=== PATIENT | male | born 1985 | race Caucasian/White ===

== ENCOUNTER 2016-09-26 09:59 | Emergency (ER) | payer BC ==
[~2016-09-26] VITALS: Ht 193 cm; Wt 96.9 kg
[~2016-09-26 09:59] MED LIST: LRT5 PO
[2016-09-26 10:14] VITALS: TEMP 36.7; Ht 193 cm; Wt 96.9 kg
--- NOTE | 2016-09-26 10:32 | EMERGENCY ROOM VISIT NOTE ---
History Report prepared by Myriam: Jose C Eagle Under the Supervision of: Dr. Ranjit Bruner M.D. First contact with patient: 10:21 Chief Complaint: ANKLE PAIN Stated Complaint: R ANKLE PAIN History of Present Illness The patient is a 31 year old male who presents to the Emergency Room with complaints of worsening right ankle swelling. The patient's right ankle has been swollen for six months now. The swelling increased today compared to yesterday, which brought the patient to the ED. The patient intermittently has pain radiating from the ankle up the right robbins. He has been diagnosed with arthritis in the past. 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 He denies any weakness or numbness of the right lower extremity. The patient broke the right foot as a child. He has no history of joint problems. He denies fevers, chills, chest pain, back pain, shortness of breath, or rashes , and otherwise feels okay. The patient denies any significant health problems. The patient has had tick exposure in the past. Source of History: patient, spouse/significant other Onset: six months ago Position: ankle (right) Quality: other (swelling) Timing: worsening Associated Symptoms: No fevers, No chills, No chest pain, No SOB, No back pain, No weakness, No numbness, No rash Review of Systems See HPI for pertinent positives & negatives. A total of 10 systems reviewed and were otherwise negative. Past Medical & Surgical Medical Problems: (1) No known health problems Old medical records were reviewed. Nurse's notes were reviewed and I agree with. Denies history of gout or diabetes or Lyme disease or other chronic illnesses Family History No pertinent family history Social History Smoking Status: Never Smoker Housing Status: lives with family Occupation Status: employed Current/Historical Medications No Active Prescriptions or Reported Meds Allergies Coded Allergies: No Known Allergies (Unverified Allergy, Mild, 05/24/07) Physical Exam Vital Signs Date Time Temp Pulse Resp B/P (MAP) Pulse Ox O2 Delivery O2 Flow Rate FiO2 09/26/16 14:12 78 18 143/73 99 09/26/16 10:14 36.7 83 18 134/88 97 Room Air Physical Exam General: Non ill-appearing young male in no acute distress, breathing comfortably on room air. Normal speech HEENT: Normal cephalic atraumatic. Pupils are equal round and reactive to light. Extraocular movements are intact. Oropharynx is pink with moist mucous membranes. No swelling of the mouth lips or tongue. Neck: Supple with a midline trachea. No meningeal signs or stiffness, no JVD or bruits. No Stridor. Chest: Clear to auscultation bilaterally. No wheezes or rhonchi. No increased work of breathing. Heart: regular rate and rhythm. Abdomen: Soft nontender, nondistended without rebound guarding or rigidity. Extremities: Mild swelling of the right lateral ankle, no redness or warmth, bounding distal pulses, normal motor sensation and capillary refill. Spine/Back. Non tender to palpation. No CVA tenderness Skin: Good turgor without rashes. Neurologic exam: Cranial nerves two through 12 are intact. Motor and sensation are intact and symmetrical throughout. Medical Decision & Procedures ER Provider Diagnostic Interpretation: X-ray results as stated below per interpretation by me and the radiologist: Radiology results as stated below per my review and radiologist interpretation: X-ray Right Foot: No fracture or dislocation. RIGHT LOWER EXTREMITY VENOUS DOPPLER CLINICAL HISTORY: Right ankle pain. COMPARISON STUDY: No previous studies for comparison. TECHNIQUE: Sonography of the deep venous system of the right lower extremity was performed. Compression and augmentation were evaluated. FINDINGS: The right common femoral, superficial femoral and popliteal veins were compressible. Augmentation was normal. Flow was shown within the deep calf vessels. IMPRESSION: No evidence of deep venous thrombus within the right lower extremity. Electronically signed by: Hema Reyes M.D. 09/26/2016 1:36 PM Dictated Date/Time: 09/26/2016 1:36 PM Laboratory Results 09/26/16 10:45 Red Blood Count 4.94, Mean Corpuscular Volume 90.9, Mean Corpuscular Hemoglobin 31.2, Mean Corpuscular Hemoglobin Concent 34.3, Mean Platelet Volume 10.2, Neutrophils (%) (Auto) 72.8, Lymphocytes (%) (Auto) 14.2, Monocytes (%) (Auto) 12.4, Eosinophils (%) (Auto) 0.3, Basophils (%) (Auto) 0.1, Neutrophils # (Auto ) 7.18, Lymphocytes # (Auto) 1.40, Monocytes # (Auto) 1.22, Eosinophils # (Auto ) 0.03, Basophils # (Auto) 0.01 09/26/16 10:45 Test 09/26/16 10:45 White Blood Count 9.86 K/uL (4.8-10.8) Red Blood Count 4.94 M/uL (4.7-6.1) Hemoglobin 15.4 g/dL (14.0-18.0) Hematocrit 44.9 % (42-52) Mean Corpuscular Volume 90.9 fL (80-100) Mean Corpuscular Hemoglobin 31.2 pg (25-34) Mean Corpuscular Hemoglobin Concent 34.3 g/dl (32-36) Platelet Count 346 K/uL (130-400) Mean Platelet Volume 10.2 fL (7.4-10.4) Neutrophils (%) (Auto) 72.8 % Lymphocytes (%) (Auto) 14.2 % Monocytes (%) (Auto) 12.4 % Eosinophils (%) (Auto) 0.3 % Basophils (%) (Auto) 0.1 % Neutrophils # (Auto) 7.18 K/uL (1.4-6.5) Lymphocytes # (Auto) 1.40 K/uL (1.2-3.4) Monocytes # (Auto) 1.22 K/uL (0.11-0.59) Eosinophils # (Auto) 0.03 K/uL (0-0.5) Basophils # (Auto) 0.01 K/uL (0-0.2) RDW Standard Deviation 42.6 fL (36.4-46.3) RDW Coefficient of Variation 12.7 % (11.5-14.5) Immature Granulocyte % (Auto) 0.2 % Immature Granulocyte # (Auto) 0.02 K/uL (0.00-0.02) Erythrocyte Sedimentation Rate 3 mm/hr (0-14) Anion Gap 8.0 mmol/L (3-11) Est Creatinine Clear Calc Drug Dose 131.3 ml/min Estimated GFR () 115.7 Estimated GFR (Non- 99.8 BUN/Creatinine Ratio 19.8 (10-20) Uric Acid 5.4 mg/dl (2.6-7.2) Calcium Level 9.0 mg/dl (8.5-10.1) C-Reactive Protein < 0.29 mg/dl (0-0.29) Lyme Disease IgG Antibody NEG (NEG) Lyme Disease IgM Antibody NEG (NEG) Laboratory studies as stated above per my review. ED Course 1025: Past medical records reviewed. The patient was evaluated in room B7, and a complete history and physical examination were performed. 1140: The patient is resting comfortably waiting to go for ultrasound. 1320: The patient is going for the ultrasound. He continues to appear comfortable. 1510: Reassessed the patient. Discussed the findings with him. He understandings and agrees with the discharge instructions. The patient is ready for discharge. Medical Decision Differential diagnosis includes DVT, gout, infection, Lyme disease, trauma, fracture. This patient comes in as described above. He was placed in room B7. He is here for treatment and evaluation of right ankle swelling and pain has been going on for about 6 months. he is on his feet a lot. He's had known injury recently. He had an x-ray yesterday which showed no fracture. There was concern for increased venous prominence and he sent him over here for ultrasound. His foot is pink and well-perfused appearing there is no evidence of arterial or neurovascular compromise. He has normal Achilles function. The joint is not red or warm or swollen. He has no other joint pains or systemic complaints. IV access established blood tests were ordered as well as an ultrasound. His inflammatory markers are not elevated. he has no elevation of the white count or sedimentation rate or CRP. His Lyme titer was negative. Ultrasound shows no evidence of DVT. He should continue use his brace and crutches and keep his appointment with orthopedics and follow-up and use anti- inflammatories. Return if: increasing pain, redness or warmth, fever or chills , any new problems or concerns. Medication Reconciliation: I attest that I have personally reviewed the patient' s current medication list. Blood pressure Screening: Patient was found to have normal blood pressure on screening and does not require follow-up. Impression Primary Impression: Right ankle pain Additional Impression: Right ankle swelling Scribe Attestation The scribe's documentation has been prepared under my direction and personally reviewed by me in its entirety. I confirm that the note above accurately reflects all work, treatment, procedures, and medical decision making performed by me. Departure Information Dispostion Home / Self-Care Prescriptions No Active Prescriptions or Reported Meds Referrals Peter Yoder III, M.D. (PCP) Forms HOME CARE DOCUMENTATION FORM, IMPORTANT VISIT INFORMATION Patient Instructions My [facility] [place] [employer] Additional Instructions Rest. Drink plenty of fluids. Continue to use crutches and air splint as directed previously May use ibuprofen 400 mg every 4 to 6 hours, take with food Return if: Increasing pain, redness or warmth, fever or chills, numbness weakness, any new problems concerns. Follow-up with your doctor or orthopedist this week for recheck. Problem Qualifiers Primary Impression: Right ankle pain Chronicity: unspecified Qualified Codes: M25.571 - Pain in right ankle and joints of right foot
[2016-09-26 11:03] LABS: BASO % 0.1 %; BASO ABS # 0.01 K/uL (0-0.2); COMPLETE YES; EOS % 0.3 %; HEMATOCRIT 44.9 % (42-52); IG% 0.2 %; LYMPH % 14.2 %; MEAN CELL VOLUME 90.9 fL (80-100); MEAN CORPUSCULAR HEMOGLOBIN 31.2 pg (25-34); MEAN CORPUSCULAR HGB CONC 34.3 g/dl (32-36); MEAN PLATELET VOLUME 10.2 fL (7.4-10.4); MONO % 12.4 %; NEUT % 72.8 %; PLATELET COUNT 346 K/uL (130-400); RED BLOOD COUNT 4.94 M/uL (4.7-6.1); WHITE BLOOD COUNT 9.86 K/uL (4.8-10.8)
[2016-09-26 11:31] LABS: BLOOD UREA NITROGEN 20 mg/dl (7-18); BUN/CREATININE RATIO 19.8 (10-20); C-REACTIVE PROTEIN < 0.29 mg/dl (0-0.29); CARBON DIOXIDE 26 mmol/L (21-32); CHLORIDE 107 mmol/L (98-107); GLUCOSE 98 mg/dl (70-99); POTASSIUM 3.8 mmol/L (3.5-5.1); SODIUM 141 mmol/L (136-145); URIC ACID 5.4 mg/dl (2.6-7.2)
[2016-09-26 11:47] LABS: LYME DISEASE AB IGG NEG (NEG); LYME DISEASE AB IGM NEG (NEG)
--- NOTE | 2016-09-26 13:37 | DIAGNOSTIC IMAGING REPORT ---
RIGHT LOWER EXTREMITY VENOUS DOPPLER CLINICAL HISTORY: Right ankle pain. COMPARISON STUDY: No previous studies for comparison. TECHNIQUE: Sonography of the deep venous system of the right lower extremity was performed. Compression and augmentation were evaluated. FINDINGS: The right common femoral, superficial femoral and popliteal veins were compressible. Augmentation was normal. Flow was shown within the deep calf vessels. IMPRESSION: No evidence of deep venous thrombus within the right lower extremity. Electronically signed by: Hema Reyes M.D. 09/26/2016 1:36 PM Dictated Date/Time: 09/26/2016 1:36 PM
[2016-09-26 14:12] VITALS: BP 143/73; PULSE 78; O2SAT 99
== END 2016-09-26 14:17 | disposition home or self-care (01) ==
LOC: C.EDB 10:03
DX: M25.571 Pain in right ankle and joints of right foot (principal); M79.89 Other specified soft tissue disorders

== ENCOUNTER → 2016-12-22 | Outpatient (CLI) | payer BC ==
[2016-12-22 16:28] LABS: DAYS OF ABSTINENCE 3.5; METHOD OF COLLECTION MASTURBATION; SEMEN COLOR GRAY OR GRAY-WHITE (GRY/GRYWHTE); SEMEN TIME OF COLLECTION 1450; SEMEN VOLUME 3.5 ML (>1.5); TYPE OF SPECIMEN CONTAINER STERILE
[2016-12-22 16:31] LABS: SEMEN LIQUEFACTION COMPLETE
[2016-12-26 14:31] LABS: SPERM VIABILITY STAIN NOT INDICATED % (>58%)
== END | disposition home or self-care (01) ==
LOC: C.LAB 15:49
PROVIDERS: ATTEND Obstetrics & Gynecology
DX: Z31.41 Encounter for fertility testing (principal)

== ENCOUNTER 2021-07-02 15:31 | Inpatient (IN) ==
[2021-07-02] MEDS ORDERED: SODIUM CHLORIDE 0.9% 1000ML 2,000 ML IV ONE (15:57)
[2021-07-02 16:38] LABS: Influenza A virus by PCR Negative (Negative); Influenza B virus by PCR Negative (Negative)
[2021-07-02] MEDS ORDERED: cefTRIAXone SODIUM 1,000 MG/50 ML BAG IV STA (16:41)
--- NOTE | 2021-07-02 16:41 | Emergency Department Note ---
History of Present Illness General Chief complaint: Fever Stated complaint: FEVER 103, CHILLS, WAS HERE THIS AM Time Seen by Provider: 07/02/21 15:51 History of Present Illness Provider complaint: Fever chills right testicular and right inguinal pain Onset (ago): hour(s) 4 Location: genitals and right Radiation: non-radiation Severity: severe Pain Consistency: + constant Maximum Pain Intensity: 9 Current Pain Intensity: 9 Quality: + stabbing, + aching, + sharp and + dull Relieved By: + none Exacerbated By: + none Associated symptoms: + fever/chills; no cough, no headaches, no nausea/vomiting or no shortness of breath 35-year-old male presents emergency department for fever chills right testicular right inguinal pain. Patient states he was in the emergency department earlier today and discharge. Patient reports that when he got home he was feeling chills and he took his preacher and had a fever 103.5. Patient states he took the doxycycline he was prescribed during his previous ER visit and then called the urologist who referred him to the emergency department. Patient is still reporting right inguinal and right testicular pain. He also reports dysuria since being discharged. Home Medications Medication Instructions Recorded Confirmed Type elderberry fruit 460 mg-elderberry 1 cap PO DAILY #30 cap 05/15/19 07/02/21 Rx flower 115 mg capsule ldiqasjs-ovakjgeo-ycstf acid 400 1 tab PO DAILY #30 tab 05/15/19 07/02/21 Rx mcg-vit K 20 mcg-lycop 300 mcg tablet (One-A-Day Men's Multivitamin) doxycycline hyclate 100 mg tablet 100 mg PO BID 10 Days #20 tab 07/02/21 07/02/21 Rx ketorolac 10 mg tablet 10 mg PO BID PRN 5 Days #10 tab 07/02/21 07/02/21 Rx tamsulosin 0.4 mg capsule 0.4 mg PO DAILY #14 cap 07/02/21 07/02/21 Rx Allergies Allergy/AdvReac Type Severity Reaction Status Date / Time No Known Allergies Allergy Mild Unverified 07/02/21 16:10 Past Med/Surg History Medical History Migraine Surgical History History of ankle surgery reconstruction of right ankle 2017 Lower extremity injury titanium clayton placed on left femur Family History Sister FH: kidney cancer as a child Grandmother (Paternal) Diabetes Grandfather (Paternal) Heart disease Social History Smoking Status: Never smoker Hx Alcohol Use: Yes Alcohol type: beer Alcohol Intake Frequency Comment: 3-5 weekly Hx Substance Use: No Preferred Language: Paraguayan Communication Ability: Effective Visual Impairment: No Limitations Hearing Ability: Hard of Hearing marital status: Current Living Situation: Spouse current occupational status: employed current occupation: welder production line gas Feels Safe at Home: Yes Childhood Exposure to Second-Hand Smoke: No Dental Care, Regularly: No Physical Activity Frequency: Does not Exercise Seatbelt Use: always Review of Systems A total of 10 systems reviewed and were otherwise negative Physical Exam Vital Signs Vital Signs - 24 hr 07/02/21 15:32 07/02/21 15:57 07/02/21 17:20 Temperature 37.5 C Temperature Source Oral Pulse Rate 131 H 89 124 H Pulse Rhythm Regular Respiratory Rate 20 22 22 Blood Pressure 146/71 H 136/76 Blood Pressure Mean 96 96 Blood Pressure Position Sitting Pulse Oximetry 96 98 98 Oxygen Delivery Method Room Air Room Air Room Air Sepsis Recent Fever Within 48 Hours Yes Sepsis New/Unexplained Change in Mental Status No Sepsis Action Taken by Nursing No Action Required Physical Exam GENERAL: He is oriented to person, place, and time. He appears well-developed and well-nourished. He does not appear distressed. HENT: Exam performed. - Head: Normocephalic and atraumatic. - Right Ear: External ear normal. No mastoid tenderness. - Left Ear: External ear normal. No mastoid tenderness. - Mouth/Throat: The oropharynx is clear and moist. No trismus in the jaw. No dental abscesses or uvula swelling. No oropharyngeal exudate or tonsillar abscesses. EYES: Conjunctivae and EOM are normal. Pupils are equal, round, and reactive to light. Right eye exhibits no discharge. Left eye exhibits no discharge. No scle ral icterus. NECK: Normal range of motion. Neck supple. No JVD present. No spinous process tenderness present. No carotid bruit present. No rigidity. No tracheal deviation and normal range of motion present. No Brudzinski's sign and no Kernig's sign noted. CV: Tachycardic rate, regular rhythm, normal heart sounds and intact distal pulses. There is no peripheral edema. Palpable radial pulses bue. PULM/CHEST: Effort normal and breath sounds normal. No respiratory distress. No stridor. He has no wheezes. He has no rales. - Chest Wall: He exhibits no tenderness. ABD: The abdomen is soft. Bowel sounds are normal. He has no distension. No mass is present. There is tenderness to palpation of the right lower quadrant. : Cremasteric reflex present bilaterally. Pain on palpation of the right testicle. No genital lesions. No urethral discharge. No inguinal hernias bilaterally. MUSC/SKEL: Normal range of motion. There is no peripheral edema, tenderness or deformity. LYMPH: No cervical adenopathy. NEURO: He is alert and oriented to person, place, and time. He has normal strength. No cranial nerve deficit or sensory deficit. Coordination and gait normal. GCS eye subscore is 4. GCS verbal subscore is 5. GCS motor subscore is 6. Cerebellar tests wnl. SKIN: Skin is warm and dry. He is not diaphoretic. PSYCH: He has a normal mood and affect. Behavior is normal. Judgment and thought content normal. Course Course 1551: The patient was evaluated in room B2. A complete history and physical exam was performed Cardiac monitoring: An order was placed for continuous cardiac monitoring. The monitor shows a rate of 130 with sinus tachycardia rhythm EMR reviewed. Patient was discharged from the ER today at 11:48 AM, roughly 4 hours ago. At that time the patient was discharged with prescription doxycycline ketorolac Flomax. During his previous ER workup he had a leukocytosis of 20 and a negative urinalysis. Testicular ultrasound showed epididymal orchitis. 1740: Patient's white blood cell count is elevated at 23. Acid within normal limits. CT of the abdomen pelvis is within normal limits. Patient will be admitted to the [facility] hospitalist team Dr. Morse notified for orchitis. Rocephin also given to the patient while in the emergency department. Administered Medications Discontinued Medications Sodium Chloride (Nss 1000ml) 2,000 mls @ 999 mls/hr IV .Q2H1M ONE Stop: 07/02/21 17:57 Last Admin: 07/02/21 16:30 Dose: 999 mls/hr Documented by: [id number] Ceftriaxone Sodium (Rocephin) 1,000 mg in 50 mls @ 100 mls/hr IV NOW STA Stop: 07/02/21 17:10 Last Infusion: 07/02/21 17:58 Dose: 0 mls/hr Documented by: [id number] Admin: 07/02/21 17:14 Dose: 100 mls/hr Documented by: [id number] Ioversol (Optiray 320 100ml) 93 ml IV ONCE ONE Stop: 07/02/21 16:45 Last Admin: 07/02/21 16:47 Dose: 93 ml Documented by: [id number] Ketorolac Tromethamine (Ketorolac Tromethamine 15 Mg/Ml Vial) 15 mg IV NOW STA Stop: 07/02/21 17:44 Last Admin: 07/02/21 17:48 Dose: 15 mg Documented by: [id number] Medical Decision Making Laboratory Data Result diagrams: 07/02/21 16:22 07/02/21 16:22 Lab Results 07/02/21 07/02/21 07/02/21 Range/Units 16:13 16:13 16:22 WBC 23.32 H (4.8-10.8) K/uL RBC 4.69 L (4.7-6.1) M/uL Hgb 14.5 (14.0-18.0) g/dL Hct 43.4 (42-52) % MCV 92.5 (80-100) fL MCH 30.9 (25-34) pg MCHC 33.4 (32-36) g/dL RDW Std Deviation 44.2 (36.4-46.3) fL RDW Coeff of Kenna 13.1 (11.5-14.5) % Plt Count 374 (130-400) K/uL MPV 10.0 (7.4-10.4) fL Immature Gran % (Auto) 0.3 % Neut % (Auto) 89.6 % Lymph % (Auto) 3.3 % [place] % (Auto) 6.7 % Eos % (Auto) 0.0 % Baso % (Auto) 0.1 % Neut # (Auto) 20.88 H (1.4-6.5) K/uL Lymph # (Auto) 0.78 L (1.2-3.4) K/uL [place] # (Auto) 1.56 H (0.11-0.59) K/uL Eos # (Auto) 0.00 (0-0.5) K/uL Baso # (Auto) 0.02 (0-0.2) K/uL Immature Gran # (Auto) 0.08 H (0.00-0.02) K/uL Sodium (136-145) mmol/L Potassium (3.5-5.1) mmol/L Chloride (98-107) mmol/L Carbon Dioxide (21-32) mmol/L Anion Gap (3-11) BUN (6-23) mg/dl Creatinine (0.6-1.4) mg/dl Est Cr Clr Drug Dosing ml/min Est GFR ( Amer) ml/min Est GFR (Non-Af Amer) ml/min BUN/Creatinine Ratio (10-20) Glucose (70-99(Fasting)) mg/dl Lactate (0.4-2.0) mmol/L Calcium (8.5-10.1) mg/dl Influ A Molecular Assay Negative (Negative) Influ B Molecular Assay Negative (Negative) SARS-CoV-2, RNA, NAAT NEGATIVE (NEGATIVE) 07/02/21 07/02/21 Range/Units 16:22 16:22 WBC (4.8-10.8) K/uL RBC (4.7-6.1) M/uL Hgb (14.0-18.0) g/dL Hct (42-52) % MCV (80-100) fL MCH (25-34) pg MCHC (32-36) g/dL RDW Std Deviation (36.4-46.3) fL RDW Coeff of Kenna (11.5-14.5) % Plt Count (130-400) K/uL MPV (7.4-10.4) fL Immature Gran % (Auto) % Neut % (Auto) % Lymph % (Auto) % [place] % (Auto) % Eos % (Auto) % Baso % (Auto) % Neut # (Auto) (1.4-6.5) K/uL Lymph # (Auto) (1.2-3.4) K/uL [place] # (Auto) (0.11-0.59) K/uL Eos # (Auto) (0-0.5) K/uL Baso # (Auto) (0-0.2) K/uL Immature Gran # (Auto) (0.00-0.02) K/uL Sodium 137 (136-145) mmol/L Potassium 4.0 (3.5-5.1) mmol/L Chloride 105 (98-107) mmol/L Carbon Dioxide 27 (21-32) mmol/L Anion Gap 5 (3-11) BUN 19 (6-23) mg/dl Creatinine 1.02 (0.6-1.4) mg/dl Est Cr Clr Drug Dosing 124.1 ml/min Est GFR ( Amer) 109.9 ml/min Est GFR (Non-Af Amer) 94.8 ml/min BUN/Creatinine Ratio 18.6 (10-20) Glucose 101 H (70-99(Fasting)) mg/dl Lactate 0.8 (0.4-2.0) mmol/L Calcium 9.3 (8.5-10.1) mg/dl Influ A Molecular Assay (Negative) Influ B Molecular Assay (Negative) SARS-CoV-2, RNA, NAAT (NEGATIVE) Imaging Data Radiologist's Impression: Abdomen/Pelvis CT 07/02/21 15:57 CT OF THE ABDOMEN AND PELVIS WITH CONTRAST CLINICAL HISTORY: R flank pain and RLQ pain and dysuria COMPARISON STUDY: None. TECHNIQUE: Following IV administration of 93 mL of Optiray, axial images of the abdomen and pelvis were obtained from the lung bases to the proximal femurs. Images were reviewed in the axial, sagittal, and coronal planes. IV contrast was administered without complication. Automated exposure control was utilized for the study. A dose lowering technique was utilized adhering to the principles of ALARA. CT DOSE: 500.36 mGy.cm FINDINGS: Visualized portions of the lower lungs are suboptimally assessed due to respiratory motion artifact. There is suggestion of tiny nodules throughout the lower lungs, likely centrilobular in location. Linear opacities reflect atelectasis. No pneumatosis, free air or portal venous gas is present. Liver, s pleen, adrenal glands, kidneys and pancreas are normal. There is no hydronephrosis. No biliary or pancreatic ductal dilatation is present. There is no evidence for acute appendicitis. No evidence for a bowel obstruction. Caliber and wall thickness of small and large bowel are normal. There is no lym phadenopathy. Major vasculature is patent. No acute fracture or suspicious lesion within the visualized skeletal structures. Surgical clips within the scrotum are noted. Left femoral internal fixation is partially imaged. IMPRESSION: 1. No acute process within the abdomen or pelvis. 2. Tiny nodules throughout the lower lungs, suboptimally assessed on this exam. These may be centrilobular location and raise the possibility of bronchiolitis or less likely hypersensitivity pneumonitis. ACT 112: Negative or not required by law. Electronically signed by: Hema Reyes M.D. 07/02/2021 5:03 PM [facility] Narrative 1551: The patient was evaluated in room B2. A complete history and physical exam was performed Cardiac monitoring: An order was placed for continuous cardiac monitoring. The monitor shows a rate of 130 with sinus tachycardia rhythm EMR reviewed. Patient was discharged from the ER today at 11:48 AM, roughly 4 hours ago. At that time the patient was discharged with prescription doxycycline ketorolac Flomax. During his previous ER workup he had a leukocytosis of 20 and a negative urinalysis. Testicular ultrasound showed epididymal orchitis. 1740: Patient's white blood cell count is elevated at 23. Acid within normal limits. CT of the abdomen pelvis is within normal limits. Patient will be admitted to the [facility] hospitalist team Dr. Morse notified for orchitis. Rocephin also given to the patient while in the emergency department. Impression & Plan Orchitis and epididymitis Discharge Plan Visit Data Chief Complaint: Fever Stated Complaint: FEVER 103, CHILLS, WAS HERE THIS AM ED Provider: Dandy Huynh Discharge Problem: Orchitis and epididymitis Patient Disposition: Admitted As Inpatient Forms Stand Alone Forms: My [facility] Prescriptions Prescriptions: No Action doxycycline hyclate 100 mg tablet 100 mg PO BID 10 Days Qty: 20 RF: 0 ketorolac 10 mg tablet 10 mg PO BID PRN (Reason: pain) 5 Days Qty: 10 RF: 0 tamsulosin 0.4 mg capsule 0.4 mg PO DAILY Qty: 14 RF: 0 One-A-Day Men's Multivitamin 400-20-300 mcg tablet 1 tab PO DAILY Qty: 30 RF: 0 elderberry fruit and flower 460-115 mg capsule 1 cap PO DAILY Qty: 30 RF: 1 Referrals Referrals: PCP,NO [Primary Care Provider] -
[2021-07-02 16:42] LABS: Hematocrit (blood only) 43.4 % (42-52); Hemoglobin 14.5 g/dL (14.0-18.0); Mean Corpuscular Hemoglobin 30.9 pg (25-34); Mean Corpuscular Hgb Conc 33.4 g/dL (32-36); Mean Corpuscular Volume 92.5 fL (80-100); Platelet Count 374 K/uL (130-400); RDW Coefficient of Variation 13.1 % (11.5-14.5); RDW Standard Deviation 44.2 fL (36.4-46.3); Red Blood Count 4.69 M/uL (4.7-6.1); White Blood Count 23.32 K/uL (4.8-10.8)
[2021-07-02] MEDS ORDERED: OPTIRAY 320 100ml IV ONE (16:44)
[2021-07-02 17:00] LABS: Basophils # (auto) 0.02 K/uL (0-0.2); Basophils % (auto) 0.1 %; Immature Granulocytes # (auto) 0.08 K/uL (0.00-0.02); Immature Granulocytes % (auto) 0.3 %; Lymphocytes # (auto) 0.78 K/uL (1.2-3.4); Lymphocytes % (auto) 3.3 %; Monocytes # (auto) 1.56 K/uL (0.11-0.59); Monocytes % (auto) 6.7 %; Neutrophils # (auto) 20.88 K/uL (1.4-6.5); Neutrophils % (auto) 89.6 %
[2021-07-02 17:03] LABS: BUN Creatinine Ratio 18.6 (10-20); Calcium 9.3 mg/dl (8.5-10.1); Creatinine Clr Calc Pharmacy 124.1 ml/min; Est GFR (African American) 109.9 ml/min; Est GFR (Non-African American) 94.8 ml/min
--- NOTE | 2021-07-02 17:06 | CT Scan Report ---
CT OF THE ABDOMEN AND PELVIS WITH CONTRAST CLINICAL HISTORY: R flank pain and RLQ pain and dysuria COMPARISON STUDY: None. TECHNIQUE: Following IV administration of 93 mL of Optiray, axial images of the abdomen and pelvis we re obtained from the lung bases to the proximal femurs. Images were reviewed in the axial, sagittal, and coronal planes. IV contrast was administered without complication. Automated exposure control wa s utilized for the study. A dose lowering technique was utilized adhering to the principles of ALARA . CT DOSE: 500.36 mGy.cm FINDINGS: Visualized portions of the lower lungs are suboptimally assessed due to respiratory motion artifact. There is suggestion of tiny nodules throughout the lower lungs, likely centrilobular in loc ation. Linear opacities reflect atelectasis. No pneumatosis, free air or portal venous gas is present . Liver, spleen, adrenal glands, kidneys and pancreas are normal. There is no hydronephrosis. No bili lori or pancreatic ductal dilatation is present. There is no evidence for acute appendicitis. No evide nce for a bowel obstruction. Caliber and wall thickness of small and large bowel are normal. There is no lymphadenopathy. Major vasculature is patent. No acute fracture or suspicious lesion within the v isualized skeletal structures. Surgical clips within the scrotum are noted. Left femoral internal fix ation is partially imaged. IMPRESSION: 1. No acute process within the abdomen or pelvis. 2. Tiny nodules throughout the lower lungs, suboptimally assessed on this exam. These may be centrilo bular location and raise the possibility of bronchiolitis or less likely hypersensitivity pneumonitis . ACT 112: Negative or not required by law. Electronically signed by: Hema Reyes M.D. 07/02/2021 5:03 PM
[2021-07-02] MEDS ORDERED: KETOROLAC TROMETHAMINE 15 MG/ML VIAL IV STA (17:43)
[2021-07-02] MEDS ORDERED: SODIUM CHLORIDE 0.9% 1000ML 1,000 ML IV SCH (17:45)
[2021-07-02] MEDS ORDERED: ONDANSETRON INJ 2 MG/ML 2 ML VIAL IV PRN (18:43)
[2021-07-02] MEDS ORDERED: LACTATED RINGER'S 1,000 ML IV SCH (18:45)
[2021-07-02] MEDS ORDERED: levoFLOXacin/D5W 500 MG/100 ML BAG IV STA (18:55)
[2021-07-02 19:40] LABS: Appearance Urine Clear (Clear); Bilirubin Urine Negative (Negative); Blood Urine Negative (Negative); Color Urine Yellow; Glucose Urine UA Negative (Negative); Ketones Urine 2+ (Negative); Leukocyte Esterase Urine Negative (Negative); Nitrite Urine Negative (Negative); Protein Urine Negative (Negative); Specific Gravity Urine > 1.045 (1.000-1.030); Urobilinogen Urine Negative (Negative); pH Urine 6.5 (4.5-7.5)
--- NOTE | 2021-07-02 19:45 | History & Physical Report ---
Date of Service July 02, 2021 Assessment & Plan (1) Sepsis: Plan: Sepsis without shock- Pulmonary vs. testicle or both - Will cover for epididymitis with Rocephin and Levaquin until STI ruled in/out- - Urine Analysis with culture - CXR- reticulonodular interstitial thickening within the lungs- lungs clear, no cough, no dyspnea and/or hypoxia- Rocephin and Levaquin still with good pulm coverage - - Blood cultures- although drawn after administration of oral doxy this morning and Rocephin dosing in EMD - MRSA swab- post vasectomy in 05/20 - ESR/CRP/PCT - GC and Chlamydia urine - Prostate not enlarged on CT scan also no pain with defecation - Lactate 0.8 - no further evidence of organ dysfunction - Crystalloid 1L now and follow with LR 125ml/hour- not hypotensive (2) Orchitis and epididymitis: Plan: As above- Urology consulted - Updated Dr. 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 exposure - no cough, no sputum, no hypoxia and/or dysnpea - No comparison - Treat as above - CT high res either as inpatient or outpatient History of Present Illness Primary Care Provider: NO PCP 35 YOM with past medical history of: Migraine, s/p vasectomy in May 20. Comes to the [facility] today for complaints of right testicular pain that started at 0400 this morning with radiation to his lower abdomen. 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 As the day went on the pain got worse, he called urology office and was instructed to come to the EMD. He had a urine sample that was negative alta 06/27/21. He was evaluated in the EMD this morning with testicular ultrasound and following discussion with urology- he was discharged with oral Doxycycline. The patient states he went home took Doxy and then woke up with increased pain, fever with rigors, checked his temperature and was noted to be 103. He returned back to the EMD and was noted to have HR 130s- he was given a dose of Rocephin and had a CT scan of his abdomen and pelvis done. WBC are 23 with neutrophil predominance, lactate 0.8. Last void was at 1300 today. He has no other complaints other than testicular pain, no other feelings of being ill, denies dyspnea, cough, sinus congestion, or pain with defecation. Will admit to PCU for sepsis, continue to search for other causes, CXR and blood cultures. Ultrasound of testicle was negative for abscess- awaiting urine culture, will send G&C urine. Cover patient with antibiotics to include Rocephin and Levaquin. Bolus with 1 liter of crystalloid and continue with LR, he is not hyp otensive or other evidence of organ dysfunction. Will consult urology. COVID: NEGATIVE Allergies Allergy/AdvReac Type Severity Reaction Status Date / Time No Known Allergies Allergy Mild Unverified 07/10/21 12:07 Home Medications Medication Instructions Recorded Confirmed Type elderberry fruit 460 mg-elderberry 1 cap PO DAILY #30 cap 05/15/19 07/10/21 Rx flower 115 mg capsule jnubgfpo-jsrvaiir-gstcf acid 400 1 tab PO DAILY #30 tab 05/15/19 07/10/21 Rx mcg-vit K 20 mcg-lycop 300 mcg tablet (One-A-Day Men's Multivitamin) acetaminophen 325 mg tablet 650 mg PO Q6H PRN #30 tab 07/04/21 07/10/21 Rx ibuprofen 200 mg tablet 600 mg PO Q6H PRN #60 tab 07/04/21 07/10/21 Rx Past Med/Surg History Medical History (Updated 07/10/21 @ 12:23 by HOLDEN Rock III) Abnormal CT scan, chest Industrial fumes exposure Migraine Pulmonary nodules Sepsis Surgical History H/O vasectomy 05/09/21 History of ankle surgery reconstruction of right ankle 2017 Lower extremity injury titanium clayton placed on left femur Family History Sister FH: kidney cancer Grandmother (Paternal) Diabetes Grandfather (Paternal) Heart disease Denies family history of Ovarian cancer Prostate cancer Myocardial infarction Breast cancer Colorectal cancer Social History Smoking Status: Never smoker 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); Hx Alcohol Use: No Hx Substance Use: No Preferred Language: French Communication Ability: Effective Visual Impairment: No Limitations Hearing Ability: Hard of Hearing Service Plumber Required: No Beliefs That Will Affect Care: None marital status: Current Living Situation: Spouse current occupational status: employed current occupation: [employer] Feels Safe at Home: Yes Childhood Exposure to Second-Hand Smoke: No Dental Care, Regularly: No Physical Activity Frequency: Does not Exercise Seatbelt Use: always Sunscreen Use: Yes Assistive Devices: None Review of Systems Review of Systems: REVIEW OF SYSTEMS: Constitutional: (+) fever, sweats or chills Eyes: No diplopia, no worsening or blurred vision ENT: normal hearing, no trouble swallowing Respiratory: No cough, sputum, dyspnea at rest or on exertion Cardiovascular: No chest pain, tightness or palpitations Abdomen: No pain, nausea, vomiting, diarrhea or constipation : (+) right groin pain, right testicular pain, Musculoskeletal: (+) chronic back pain, No joint pain, calf pain, swelling Neurologic: No weakness, numbness/tingling, or balance problems Psychiatric: No anxiety or depression Skin: (+) rash to right forearm- reports he gets this with his uniform at work Physical Exam Physical Exam: PHYSICAL EXAM: General: awake, alert, fatigued appearing Head: Normocephalic, atraumatic ENT: PERRLA, EOMI, no pharyngeal exudate, mucous membranes drying, no sinus pain with palpation Neuro: AAO x 3, speech clear and appropriate, strength intact bilaterally 5/5, sensation intact and equal all extremities and dermatomes, no pronator drift Chest: equal rise and fall of the chest, no accessory muscle use, no heaves or thrills, Clear to auscultation, on room air, Cardiac: Regular rate and rhythm- tachycardic, telemetry reviewed, skin warm dry, cap refill <3 seconds, peripheral pulses +2 no JVD, no murmur, no edema GI: NABS x 4 quadrants, soft, nontender to palpation, no rebound, guarding or tenderness : Urine pending- as well as G&C - endorses urine to be dark at home, no CVA tenderness or suprapubic pain Extremities: Normal inspection, no peripheral edema or erythema, calfs nontender to palpation Psych: Normal mood and affect Skin: light pink patch to right forearm- patient endorses that he gets this with his new uniforms at work and has been occurring all year Results & Data Results & Data ([facility]) Vital Signs (Past 12 Hours) Vital Signs Temp Pulse Resp BP Pulse Ox 07/02/21 18:45 38.1 C H 07/02/21 18:15 130 H 22 95 07/02/21 18:00 127 H 24 135/68 93 07/02/21 17:48 37.2 C 07/02/21 17:45 128 H 24 95 07/02/21 17:30 124 H 24 94 07/02/21 17:20 124 H 22 136/76 98 07/02/21 15:57 89 22 98 07/02/21 15:32 37.5 C 131 H 20 146/71 H 96 Laboratory Results Abnormal lab results 07/02/21 07/02/21 Range/Units 16:22 16:22 WBC 23.32 H (4.8-10.8) K/uL RBC 4.69 L (4.7-6.1) M/uL Neut # (Auto) 20.88 H (1.4-6.5) K/uL Lymph # (Auto) 0.78 L (1.2-3.4) K/uL [place] # (Auto) 1.56 H (0.11-0.59) K/uL Immature Gran # (Auto) 0.08 H (0.00-0.02) K/uL Glucose 101 H (70-99(Fasting)) mg/dl Diagnostic Findings Abdomen/Pelvis CT 07/02/21 15:57 CT OF THE ABDOMEN AND PELVIS WITH CONTRAST CLINICAL HISTORY: R flank pain and RLQ pain and dysuria COMPARISON STUDY: None. TECHNIQUE: Following IV administration of 93 mL of Optiray, axial images of the abdomen and pelvis were obtained from the lung bases to the proximal femurs. Images were reviewed in the axial, sagittal, and coronal planes. IV contrast was administered without complication. Automated exposure control was utilized for the study. A dose lowering technique was utilized adhering to the principles of ALARA. CT DOSE: 500.36 mGy.cm FINDINGS: Visualized portions of the lower lungs are suboptimally assessed due to respiratory motion artifact. There is suggestion of tiny nodules throughout the lower lungs, likely centrilobular in location. Linear opacities reflect atelectasis. No pneumatosis, free air or portal venous gas is present. Liver, spleen, adrenal glands, kidneys and pancreas are normal. There is no hydronephrosis. No biliary or pancreatic ductal dilatation is present. There is no evidence for acute appendicitis. No evidence for a bowel obstruction. Caliber and wall thickness of small and large bowel are normal. There is no lymphadenopathy. Major vasculature is patent. No acute fracture or suspicious lesion within the visualized skeletal structures. Surgical clips within the scrotum are noted. Left femoral internal fixation is partially imaged. IMPRESSION: 1. No acute process within the abdomen or pelvis. 2. Tiny nodules throughout the lower lungs, suboptimally assessed on this exam. These may be centrilobular location and raise the possibility of bronchiolitis or less likely hypersensitivity pneumonitis. ACT 112: Negative or not required by law. Electronically signed by: Hema Reyes M.D. 07/02/2021 5:03 PM US scrotum/testicle-:07/02/21 CLINICAL HISTORY: R sided testicular swelling/pain; vasectomy 05/09 TECHNIQUE: Real-time sonographic images of the scrotal contents were obtained. Comparison: None available at the time of this dictation. FINDINGS: The right testicle measures 4.3 x 2.5 x 3.0 cm. The left testicle measures 3.7 x 1.9 x 3.1 cm. Increased vascularity is seen on the right. No focal intratesticular lesions are identified. Increased vascularity is seen in the right epididymis. There are no hydroceles. No varicoceles were seen. IMPRESSION: Increased vascularity in the right epididymis and testis compatible with epididymal orchitis. XR chest 1V portable CLINICAL HISTORY: evaluate for infiltrates/effusions COMPARISON STUDY: No previous studies for comparison. FINDINGS: Lung volumes are normal. No pneumothorax or pleural effusion is present. Old right clavicular fracture is present. Cardiac size is normal. Mediastinal contours are normal. There is diffuse reticulonodular interstitial thickening within the lungs. IMPRESSION: Diffuse reticulonodular interstitial thickening within the lungs. This is nonspecific although favors an infectious process. Radiographic follow- up is recommended. ACT 112: Negative or not required by law. Medications Administered Sodium Chloride (Nss 1000ml) 1,000 mls @ 125 mls/hr IV .Q8H CODY Stop: 08/01/21 17:44 Last Admin: 07/02/21 18:12 Dose: 125 mls/hr Documented by: [id number] Discontinued Medications Sodium Chloride (Nss 1000ml) 2,000 mls @ 999 mls/hr IV .Q2H1M ONE Stop: 07/02/21 17:57 Last Admin: 07/02/21 16:30 Dose: 999 mls/hr Documented by: [id number] Ceftriaxone Sodium (Rocephin) 1,000 mg in 50 mls @ 100 mls/hr IV NOW STA Stop: 07/02/21 17:10 Last Infusion: 07/02/21 17:58 Dose: 0 mls/hr Documented by: [id number] Admin: 07/02/21 17:14 Dose: 100 mls/hr Documented by: [id number] Ioversol (Optiray 320 100ml) 93 ml IV ONCE ONE Stop: 07/02/21 16:45 Last Admin: 07/02/21 16:47 Dose: 93 ml Documented by: [id number] Ketorolac Tromethamine (Ketorolac Tromethamine 15 Mg/Ml Vial) 15 mg IV NOW STA Stop: 07/02/21 17:44 Last Admin: 07/02/21 17:48 Dose: 15 mg Documented by: [id number] Home Medications elderberry fruit 460 mg-elderberry flower 115 mg capsule 1 cap PO DAILY #30 cap 05/15/19 [Rx Confirmed 07/02/21] boyzlnvc-cmryrjft-dfcga acid 400 mcg-vit K 20 mcg-lycop 300 mcg tablet (One-A-Day Men's Multivitamin) 1 tab PO DAILY #30 tab 05/15/19 [Rx Confirmed 07/02/21] doxycycline hyclate 100 mg tablet 100 mg PO BID 10 Days #20 tab 07/02/21 [Rx Confirmed 07/02/21] ketorolac 10 mg tablet 10 mg PO BID PRN 5 Days #10 tab 07/02/21 [Rx Confirmed 07/02/21] tamsulosin 0.4 mg capsule 0.4 mg PO DAILY #14 cap 07/02/21 [Rx Confirmed 07/02/21] Active Medications Acetaminophen (Acetaminophen 325 Mg Tab) 650 mg PO Q4H PRN PRN Reason: Pain or Fever Stop: 08/01/21 18:42 Sodium Chloride (Nss 1000ml) 1,000 mls @ 125 mls/hr IV .Q8H CODY Stop: 08/01/21 17:44 Last Admin: 07/02/21 18:12 Dose: 125 mls/hr Documented by: Levofloxacin/Dextrose (Levaquin/D5w) 500 mg in 100 mls @ 100 mls/hr IV NOW STA Stop: 07/02/21 19:54 Ondansetron HCl (Ondansetron Inj 2 Mg/Ml 2 Ml Vial) 4 mg IV Q6H PRN PRN Reason: Nausea Stop: 08/01/21 18:42 ECG Additional Comments: Pending on admission Code Status & VTE Plan VTE Prophylaxis Plan VTE Prophylaxis will be ordered: Yes Supervising Physician Co-Signing Physician Notes I personally saw and examined the patient. I verified all hearn points and agree with HOLDEN Alex with the following exceptions and/or additions: 35 year old male admission for sepsis. Suspect urinary/orchitis/epididymitis as source therefore treatment consists of ceftriaxone and Levaquin. Pending blood and urine cultures. O/E patient is septic appears with diaphoresis, HS 1+2, no murmurs, increased rate but regular rhythm, Chest CTAB, Abdo SNT, right testicular pain on palpation but no epididymis pain. PG Care Time/CCT Total # of Minutes Spent Total Time Spent with Patient: Total time spent is greater than 50% in coordination of care (as documented) at patient's floor/unit and/or counseling patient: Coding Level of Care Code 70205 Initial Inpt Care Lvl 3 Diagnoses Orchitis and epididymitis N45.3 Pain in right testicle N50.811 Sepsis A41.9 Abnormal chest xray R93.89
--- NOTE | 2021-07-02 20:12 | XRay Report ---
XR chest 1V portable CLINICAL HISTORY: evaluate for infiltrates/effusions COMPARISON STUDY: No previous studies for comparison. FINDINGS: Lung volumes are normal. No pneumothorax or pleural effusion is present. Old right clavicul ar fracture is present. Cardiac size is normal. Mediastinal contours are normal. There is diffuse ret iculonodular interstitial thickening within the lungs. IMPRESSION: Diffuse reticulonodular interstitial thickening within the lungs. This is nonspecific al though favors an infectious process. Radiographic follow-up is recommended. ACT 112: Negative or not required by law. Electronically signed by: Hema Reyes M.D. 07/02/2021 8:10 PM
[2021-07-02] MEDS: ACETAMINOPHEN 325 MG TAB PO PRN (20:27)
[2021-07-02] MEDS: levoFLOXacin/D5W 500 MG/100 ML BAG IV SCH (21:21)
[2021-07-02] MEDS: LACTATED RINGER'S 1,000 ML IV SCH (21:39)
[2021-07-03] MEDS: LACTATED RINGER'S 1,000 ML IV SCH ×3 (05:42→20:26)
--- NOTE | 2021-07-03 08:08 | Urology Consultation ---
Date of Consultation July 03, 2021 Assessment & Plan (1) Orchitis and epididymitis: (2) Pain in right testicle: 35 yo M admitted for fever and right epididymoorchitis, possible sepsis secondary to pulmonary vs source. - Urology consulted for right epididymoorchitis. - Subjectively feeling improved this AM. - Pt afebrile overnight, remains tachycardic. - No new lab work at time of visit, WBC 23.32 yesterday evening - continue to trend, GC/CT pending. - UA on admission was not suspicious for infection. - Blood cultures pending - on IV Ceftriaxone and Levaquin per primary team, follow cultures. - Continue antibiotics, supportive care, and management per primary service. - Recommend scrotal support and elevation, applying ice or heat to area for 20 min on/off, and NSAIDs. - Discussed with patient that swelling can persist for a few weeks. - will follow along with primary team. Supervising Physician Co-Signing Physician Notes Discussed patient with B[place]. Agree with plan. Unusual for patient to become septic from a relatively unimpressive scrotal US showing epididymitis, however this is the leading hypothesis at this time. Recommend broad spectrum antibiotics and pain control. Urology will follow to ensure no concerns for abscess develop. History of Present Illness Reason for Consultation: Epididymitis Requesting Physician: Dr. Morse Attending Physician: Lana Nicholson MD History of Present Illness 35 yo M with past medical history significant for migraine headaches and s/p vasectomy on 05/09/21 admitted for fever and right epididymoorchitis. Patient is known to urology service. He is s/p vasectomy on 05/09/21. He had an unremarkable scrotal US on 06/24/21 and negative urine culture on 06/27/21 as an outpatient. He presented to [facility] ED on 07/02/21 with c/o worsening right testicular pain and swelling. He was afebrile on arrival. Lab work reviewed. Creatinine 0.90, WBC 20.18, Hgb 14.8. UA was not suspicious for infection. Scrotal US showed increased vascularity in the right epididymis and testis compatible with epididymal orchitis. He was discharged to home with Doxycycline, Ketorolac, and Tamsulosin. Unfortunately, he developed fever of 103 and chills at home prompting him to return to ED in the afternoon. He was febrile on arrival, Tmax 38.1. Lab work showed creatinine 1.02, WBC 23.32, Hgb 14.5. UA was not suspicious for infection. He was tachycardic. Blood cultures collected. Covid and influenza negative. GC/CT collected. CTAP showed no acute findings, but suggested possible bronchiolitis vs hypersensitivity pneumonitis. ED course included IV fluids, Ceftriaxone and Ketorolac. He was admitted to the hospital medicine service for presumed sepsis secondary to epididymoorchitis vs pulmonary source. Urology consulted for epididymitis. Chart review: Afebrile overnight Tachycardic No new labs at time of visit Blood cultures are pending GC/CT pending Currently on IV Ceftriaxone and Levaquin Imaging: CTAP w/ IV con - Impression: 1. No acute process within the abdomen or pelvis. 2. Tiny nodules throughout the lower lungs, suboptimally assessed on this exam. These may be centrilobular location and raise the possibility of bronchiolitis or less likely hypersensitivity pneumonitis. CXR - IMPRESSION:Diffuse reticulonodular interstitial thickening within the lungs. This is nonspecific although favors an infectious process. Radiographic follow- up is recommended. Patient seen and examined at bedside this AM. He is awake, alert and reclining in bedside chair. No acute issues overnight. Subjectively feeling better this AM. Denies fever or chills overnight. Continues to have right testicular discomfort, currently rated at 4/10. He is voiding spontaneously without difficulty. No dysuria or hematuria. No nausea or vomiting. Offers no additional complaints at present. Allergies Allergy/AdvReac Type Severity Reaction Status Date / Time No Known Allergies Allergy Mild Unverified 07/02/21 16:10 Home Medications Medication Instructions Recorded Confirmed Type elderberry fruit 460 mg-elderberry 1 cap PO DAILY #30 cap 05/15/19 07/02/21 Rx flower 115 mg capsule mjlkkobe-tgoqouhm-mzxgc acid 400 1 tab PO DAILY #30 tab 05/15/19 07/02/21 Rx mcg-vit K 20 mcg-lycop 300 mcg tablet (One-A-Day Men's Multivitamin) doxycycline hyclate 100 mg tablet 100 mg PO BID 10 Days #20 tab 07/02/21 07/02/21 Rx ketorolac 10 mg tablet 10 mg PO BID PRN 5 Days #10 tab 07/02/21 07/02/21 Rx tamsulosin 0.4 mg capsule 0.4 mg PO DAILY #14 cap 07/02/21 07/02/21 Rx Patient History Medical History (Updated 07/03/21 @ 14:04 by Ricky Martinez PA-C) Abnormal CT scan, chest Industrial fumes exposure Migraine Surgical History H/O vasectomy 05/09/21 History of ankle surgery reconstruction of right ankle 2017 Lower extremity injury titanium clayton placed on left femur Family History Sister FH: kidney cancer as a child Grandmother (Paternal) Diabetes Grandfather (Paternal) Heart disease Social History Smoking Status: Never smoker Hx Alcohol Use: No Hx Substance Use: No Preferred Language: Paragu[place] Communication Ability: Effective Visual Impairment: No Limitations Hearing Ability: Hard of Hearing Beliefs That Will Affect Care: None marital status: Current Living Situation: Spouse current occupational status: employed current occupation: production welder Feels Safe at Home: Yes Childhood Exposure to Second-Hand Smoke: No Dental Care, Regularly: No Physical Activity Frequency: Does not Exercise Seatbelt Use: always Assistive Devices: None Review of Systems Constitutional: as per Subjective / HPI Eyes: no problem reported Ear, Nose, Mouth, Throat: no problem reported Respiratory: no problem reported Cardiovascular: no problem reported Gastrointestinal: as per Subjective / HPI Genitourinary: + as per Subjective / HPI Musculoskeletal: no problem reported Integumentary: no problem reported Neurologic: no problem reported Psychiatric: no problem reported Endocrine: no problem reported Physical Exam Constitutional: well developed and well nourished; no acute distress and not ill appearing Eyes: no scleral abnormality Neck: normal visual inspection Respiratory: normal respiratory effort and able to speak in complete sentences; no respiratory distress and no labored breathing Cardiovascular: Extremities: no pedal edema Gastrointestinal (Abdomen): Inspection/Auscultation: abdomen normal to inspection; abdomen not distended Musculoskeletal: Head/Neck/Chest: normocephalic and head atraumatic Extremities: extremities normal to inspection Skin: no visible rashes Neurologic: moves all extremities and awake Psychiatric: Orientation: alert and oriented x 3 Genitourinary: Circumcised penis. Tender to palpation along right epididymis and testicle. Mild right swelling noted. No induration and no significant erythema or warmth. Results & Data ([facility]) Vital Signs (Past 12 Hours) Vital Signs Temp Pulse Pulse Resp BP Pulse Ox 07/03/21 07:52 37.1 C 119 H 19 114/61 92 07/03/21 04:13 36.9 C 125 H 18 119/59 L 91 07/02/21 23:09 36.8 C 118 H 18 115/58 L 93 07/02/21 23:01 122 H 07/02/21 20:29 38.1 C H 131 H 20 115/60 95 07/02/21 20:21 134 H PG Care Time/CCT Total # of Minutes Spent Total Time Spent with Patient: Total time spent is greater than 50% in coordination of care (as documented) at patient's floor/unit and/or counseling patient: Coding Level of Care Code 71733 Inpt Consult Level 3 Diagnoses Orchitis and epididymitis N45.3 Pain in right testicle N50.811
[2021-07-03] MEDS: IBUPROFEN 600 MG TAB PO PRN ×2 (08:29→17:10)
[2021-07-03] MEDS ORDERED: TAMSULOSIN HCL 0.4 MG CAP PO SCH (09:00)
[2021-07-03 09:45] LABS: Hematocrit (blood only) 36.4 % (42-52); Hemoglobin 12.6 g/dL (14.0-18.0); Mean Corpuscular Hemoglobin 31.6 pg (25-34); Mean Corpuscular Hgb Conc 34.6 g/dL (32-36); Mean Corpuscular Volume 91.2 fL (80-100); Mean Platelet Volume 9.9 fL (7.4-10.4); Platelet Count 332 K/uL (130-400); RDW Coefficient of Variation 13.1 % (11.5-14.5); Red Blood Count 3.99 M/uL (4.7-6.1); White Blood Count 24.61 K/uL (4.8-10.8)
[2021-07-03] MEDS: ACETAMINOPHEN 325 MG TAB PO PRN ×3 (10:03→19:50)
[2021-07-03 10:07] LABS: Basophils # (auto) 0.01 K/uL (0-0.2); Eosinophils # (auto) 0.01 K/uL (0-0.5); Immature Granulocytes # (auto) 0.09 K/uL (0.00-0.02); Immature Granulocytes % (auto) 0.4 %; Lymphocytes # (auto) 1.41 K/uL (1.2-3.4); Lymphocytes % (auto) 5.7 %; Monocytes # (auto) 2.75 K/uL (0.11-0.59); Monocytes % (auto) 11.2 %; Neutrophils # (auto) 20.34 K/uL (1.4-6.5); Neutrophils % (auto) 82.7 %; RBC Morphology Unremarkable
[2021-07-03 10:13] LABS: Albumin Globulin Ratio 1.3 (0.9-2); Albumin Level 3.4 gm/dl (3.4-5.0); Bilirubin,Total 0.6 mg/dl (0.2-1.0); C Reactive Protein 13.63 mg/dl (0-0.5); Calcium 8.1 mg/dl (8.5-10.1); Creatinine Clr Calc Pharmacy 142.2 ml/min; Est GFR (African American) 128.4 ml/min; Est GFR (Non-African American) 110.8 ml/min; Globulin 2.6 gm/dl (2.5-4.0); Magnesium 1.6 mg/dl (1.7-2.4); Potassium 3.7 mmol/L (3.5-5.1)
--- NOTE | 2021-07-03 10:20 | Electrocardiogram Report ---
Test Reason : Blood Pressure : / mmHG Vent. Rate : 103 BPM Atrial Rate : 103 BPM P-R Int : 128 ms QRS Dur : 102 ms QT Int : 344 ms P-R-T Axes : 047 098 025 degrees QTc Int : 450 ms Sinus tachycardia Rightward axis Borderline ECG No previous ECGs available Confirmed by Sonny Jones ([id number]) on 07/03/2021 10:20:37 AM Referred By: REFERRED SELF Confirmed By:Sonny Jones
--- NOTE | 2021-07-03 10:33 | Hospitalist Progress Note ---
Date of Service July 03, 2021 Assessment & Plan (1) Sepsis: Plan: Sepsis without shock-secondary to epididymitis and orchitis With significant leukocytosis, elevation CRP, tachycardia, and fevers. Procalcitonin negative. Lactate negative. He is a history of vasectomy 2 months ago with no complications afterwards. Scrotal ultrasound reveals increased vascularity in the right epididymis and testis. CT abdomen/pelvis here shows no acute process in the abdomen or pelvis but with nodules in the lower lungs Overall feeling better, fevers have resolved, pain in scrotum is improved, but leukocytosis slightly worse, CRP increased from previous Sinus tachycardia is improving with IV fluids and resolution of fever. Blood cultures-no growth to date-of note, were drawn after administration of p.o. doxycycline prior to admission and 1 dose of IV Rocephin in the ER UA negative for infection from 07/02; urine culture negative from 06/27 GC/chlamydia pending Chest x-ray with reticulonodular interstitial thickening but do not believe this is related to the current sepsis - Will cover for epididymitis/orchitis with Rocephin and Levaquin -Follow blood cultures -Continue LR at 125 mL's per hour -Check ECG-with right axis deviation and sinus tachycardia, mild respiratory insufficiency with pulse ox 92% on room air-check CT angiogram chest-negative for PE, but with nodules as below -Follow CBC, CMP, magnesium, CRP in the morning -Continue Tylenol and ibuprofen as needed for pain and fever -Unsure why he is on tamsulosin-we will discontinue for now (2) Orchitis and epididymitis: Plan: As above- Urology consulted - Updated Dr. 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 No mediastinal or hilar adenopathy. Consult pulmonology appreciated-reports differential would include inflammatory lung disease such as sarcoid as well as occupational lung diseases given welding exposure. Recommends repeat chest CT and PFTs in 6 to 8 weeks. Check alpha-1 antitrypsin, ALEJANDRO, IgE. -I will also add on angiotensin converting enzyme level and vitamin D1, 25 for the morning to assess for sarcoidosis Follow-up with pulmonology as an outpatient (4) Sinus tachycardia: Plan: Secondary to sepsis ECG with right axis deviation Ordered CT angiogram chest today-negative for PE Sinus tachycardia starting to improve as fevers are resolving and IV fluids being given Continue IV fluids Continue monitoring on telemetry (5) Pulmonary nodules: Plan: As above Plan: DVT prophylaxis-SCDs, and add on Lovenox Disposition-continued stay in telemetry unit, but if improving, could potentially go home tomorrow if blood cultures remain negative Admission and Anticipated Discharge Date Admission Date: July 02, 2021 Subjective Patient reports feeling much improved today and less pain in the scrotum. He denies any shortness of breath or chest pain, no cough. No abdominal pains. No lightheadedness or headaches. Telemetry with sinus tachycardia with rates in the 120s to 130s but finally starting to come down to the low 100s currently. Review of Systems Review of Systems: All systems reviewed & are unremarkable except as noted in HPI & below Physical Exam Constitutional: WD/WN, vitals as above Eyes: + anicteric sclerae ENMT: external ear and nose normal, oropharynx normal Neck: trachea midline, no thyromegaly Respiratory: normal respiratory effort, lungs clear to auscultation Cardiovascular: RRR, no murmur, no edema Chest (Breasts): Chest: normal inspection of chest Gastrointestinal (Abdomen): normal bowel sounds, soft, nontender, no hepatosplenomegaly Musculoskeletal: Extremities: extremities normal to inspection; no cyanosis and no clubbing Skin: no rashes, warm and dry Neurologic: moves all extremities and awake; no focal motor deficits Psychiatric: A+Ox3, euthymic affect Genitourinary: + scrotum abnormality (Mild erythema and tenderness of the right hemiscrotum ); no penis abnormality Lymphatic: no lymphedema Results & Data Results & Data ([facility]) Vital Signs (Past 12 Hours) Vital Signs Temp Pulse Pulse Resp BP Pulse Ox 07/03/21 08:00 121 H 07/03/21 07:52 37.1 C 119 H 19 114/61 92 07/03/21 04:13 36.9 C 125 H 18 119/59 L 91 07/02/21 23:09 36.8 C 118 H 18 115/58 L 93 07/02/21 23:01 122 H Laboratory Results 07/03/21 07/03/21 07/03/21 Range/Units 14:53 09:08 09:08 WBC 24.61 H (4.8-10.8) K/uL RBC 3.99 L (4.7-6.1) M/uL Hgb 12.6 L (14.0-18.0) g/dL Hct 36.4 L (42-52) % MCV 91.2 (80-100) fL MCH 31.6 (25-34) pg MCHC 34.6 (32-36) g/dL RDW Std Deviation 44.0 (36.4-46.3) fL RDW Coeff of Kenna 13.1 (11.5-14.5) % Plt Count 332 (130-400) K/uL MPV 9.9 (7.4-10.4) fL Immature Gran % (Auto) 0.4 % Neut % (Auto) 82.7 % Lymph % (Auto) 5.7 % [place] % (Auto) 11.2 % Eos % (Auto) 0.0 % Baso % (Auto) 0.0 % Neut # (Auto) 20.34 H (1.4-6.5) K/uL Lymph # (Auto) 1.41 (1.2-3.4) K/uL [place] # (Auto) 2.75 H (0.11-0.59) K/uL Eos # (Auto) 0.01 (0-0.5) K/uL Baso # (Auto) 0.01 (0-0.2) K/uL Immature Gran # (Auto) 0.09 H (0.00-0.02) K/uL RBC Morphology Unremarkable Sodium 136 (136-145) mmol/L Potassium 3.7 (3.5-5.1) mmol/L Chloride 105 (98-107) mmol/L Carbon Dioxide 24 (21-32) mmol/L Anion Gap 7 (3-11) BUN 16 (6-23) mg/dl Creatinine 0.89 (0.6-1.4) mg/dl Est Cr Clr Drug Dosing 142.2 ml/min Est GFR ( Amer) 128.4 ml/min Est GFR (Non-Af Amer) 110.8 ml/min BUN/Creatinine Ratio 18.0 (10-20) Glucose 113 H (70-99(Fasting)) mg/dl Calcium 8.1 L (8.5-10.1) mg/dl Magnesium 1.6 L (1.7-2.4) mg/dl Total Bilirubin 0.6 (0.2-1.0) mg/dl AST 14 (13-39) U/L ALT 14 (7-52) U/L Alkaline Phosphatase 55 (34-104) U/L C-Reactive Protein 13.63 H (0-0.5) mg/dl Total Protein 6.0 (6.0-8.3) gm/dl Albumin 3.4 (3.4-5.0) gm/dl Globulin 2.6 (2.5-4.0) gm/dl Albumin/Globulin Ratio 1.3 (0.9-2) Alpha-1-AT Phenotype Pending Procalcitonin (0-0.5) ng/ml Nasal Screen MRSA (PCR) (Negative) IgE Pending ALEJANDRO Screen Pending C.trachomatis RNA N.gonorrhoeae RNA 07/03/21 07/02/21 07/02/21 Range/Units 05:38 Unknown 23:39 WBC (4.8-10.8) K/uL RBC (4.7-6.1) M/uL Hgb (14.0-18.0) g/dL Hct (42-52) % MCV (80-100) fL MCH (25-34) pg MCHC (32-36) g/dL RDW Std Deviation (36.4-46.3) fL RDW Coeff of Kenna (11.5-14.5) % Plt Count (130-400) K/uL MPV (7.4-10.4) fL Immature Gran % (Auto) % Neut % (Auto) % Lymph % (Auto) % [place] % (Auto) % Eos % (Auto) % Baso % (Auto) % Neut # (Auto) (1.4-6.5) K/uL Lymph # (Auto) (1.2-3.4) K/uL [place] # (Auto) (0.11-0.59) K/uL Eos # (Auto) (0-0.5) K/uL Baso # (Auto) (0-0.2) K/uL Immature Gran # (Auto) (0.00-0.02) K/uL RBC Morphology Sodium (136-145) mmol/L Potassium (3.5-5.1) mmol/L Chloride (98-107) mmol/L Carbon Dioxide (21-32) mmol/L Anion Gap (3-11) BUN (6-23) mg/dl Creatinine (0.6-1.4) mg/dl Est Cr Clr Drug Dosing ml/min Est GFR ( Amer) ml/min Est GFR (Non-Af Amer) ml/min BUN/Creatinine Ratio (10-20) Glucose (70-99(Fasting)) mg/dl Calcium (8.5-10.1) mg/dl Magnesium (1.7-2.4) mg/dl Total Bilirubin (0.2-1.0) mg/dl AST (13-39) U/L ALT (7-52) U/L Alkaline Phosphatase (34-104) U/L C-Reactive Protein (0-0.5) mg/dl Total Protein (6.0-8.3) gm/dl Albumin (3.4-5.0) gm/dl Globulin (2.5-4.0) gm/dl Albumin/Globulin Ratio (0.9-2) Alpha-1-AT Phenotype Procalcitonin 0.28 (0-0.5) ng/ml Nasal Screen MRSA (PCR) Negative (Negative) IgE ALEJANDRO Screen C.trachomatis RNA Pending N.gonorrhoeae RNA Pending 07/02/21 Range/Units 16:22 WBC (4.8-10.8) K/uL RBC (4.7-6.1) M/uL Hgb (14.0-18.0) g/dL Hct (42-52) % MCV (80-100) fL MCH (25-34) pg MCHC (32-36) g/dL RDW Std Deviation (36.4-46.3) fL RDW Coeff of Kenna (11.5-14.5) % Plt Count (130-400) K/uL MPV (7.4-10.4) fL Immature Gran % (Auto) % Neut % (Auto) % Lymph % (Auto) % [place] % (Auto) % Eos % (Auto) % Baso % (Auto) % Neut # (Auto) (1.4-6.5) K/uL Lymph # (Auto) (1.2-3.4) K/uL [place] # (Auto) (0.11-0.59) K/uL Eos # (Auto) (0-0.5) K/uL Baso # (Auto) (0-0.2) K/uL Immature Gran # (Auto) (0.00-0.02) K/uL RBC Morphology Sodium (136-145) mmol/L Potassium (3.5-5.1) mmol/L Chloride (98-107) mmol/L Carbon Dioxide (21-32) mmol/L Anion Gap (3-11) BUN (6-23) mg/dl Creatinine (0.6-1.4) mg/dl Est Cr Clr Drug Dosing ml/min Est GFR ( Amer) ml/min Est GFR (Non-Af Amer) ml/min BUN/Creatinine Ratio (10-20) Glucose (70-99(Fasting)) mg/dl Calcium (8.5-10.1) mg/dl Magnesium (1.7-2.4) mg/dl Total Bilirubin (0.2-1.0) mg/dl AST (13-39) U/L ALT (7-52) U/L Alkaline Phosphatase (34-104) U/L C-Reactive Protein (0-0.5) mg/dl Total Protein (6.0-8.3) gm/dl Albumin (3.4-5.0) gm/dl Globulin (2.5-4.0) gm/dl Albumin/Globulin Ratio (0.9-2) Alpha-1-AT Phenotype Procalcitonin 0.07 (0-0.5) ng/ml Nasal Screen MRSA (PCR) (Negative) IgE ALEJANDRO Screen C.trachomatis RNA N.gonorrhoeae RNA Diagnostic Findings Chest CTA 07/03/21 10:22 CT ANGIOGRAM OF THE CHEST CLINICAL HISTORY: Dyspnea. Sepsis. COMPARISON STUDY: Abdominal CT dated 07/02/2021. Chest x-ray dated 07/02/2021. TECHNIQUE: Following the IV administration of 120 cc of Optiray 320, CT angiogram of the chest was performed from the upper abdomen to the thoracic inlet utilizing the pulmonary embolus protocol. Images are reviewed in the axial, sagittal, and coronal planes. 3-D MIPS images are created and assessed. IV contrast was administered without complication. A dose lowering technique was utilized adhering to the principles of ALARA. CT DOSE: 489.81 mGy.cm FINDINGS: Thyroid: Imaged portions of the thyroid gland are normal in size and attenuation. Thoracic aorta: The thoracic aorta is normal in caliber and demonstrates standard 3-vessel arch anatomy. No dissection is seen. Pulmonary vasculature: The pulmonary trunk is normal in caliber. There are no filling defects identified in main, lobar, or segmental pulmonary branches to suggest pulmonary embolus. Heart: The heart is normal in size and without pericardial effusion. Lungs and pleural spaces: Dependent atelectasis is noted at both lung bases. There is no lobar consolidation or pleural effusion. Diffuse centrilobular nodules are seen throughout both lungs with mild groundglass change. There is mild diffuse peribronchial thickening. The trachea and central airways are clear. Mediastinum: There is no mediastinal lymphadenopathy. Rosangela: Clear. Axillae: There is no axillary lymphadenopathy. Upper abdomen: Partially visualized upper abdominal viscera is within normal limits. Skeletal structures: No lytic or blastic bony lesions are seen. There is chronic posttraumatic deformity of the right clavicle. Soft tissues: Mild gynecomastia is noted. IMPRESSION: 1. There is no evidence of pulmonary embolus in the main, lobar, or segmental pulmonary arteries. 2. There is extensive/diffuse centrilobular nodularity with mild groundglass change. The appearance is nonspecific and favors a hypersensitivity pneumonitis. A diffuse bronchiolitis could also have this appearance. Less likely, this could represent atypical infectious process or could be seen with a vasculitis. Clinical correlation will be essential. 3. There is no lobar consolidation or pleural effusion. 4. No mediastinal or hilar adenopathy is identified. ACT 112: Negative or not required by law. Electronically signed by: Ricky Archer M.D. 07/03/2021 11:44 AM PG Care Time/CCT Total # of Minutes Spent Total Time Spent with Patient: Total time spent is greater than 50% in coordination of care (as documented) at patient's floor/unit and/or counseling patient: Coding Level of Care Code 04509 Subseq Hosp Care Lvl 3 Diagnoses Sepsis A41.9 Orchitis and epididymitis N45.3 Abnormal chest xray R93.89 Sinus tachycardia R00.0 Pulmonary nodules R91.8
[2021-07-03] MEDS ORDERED: OPTIRAY 320 125ml IV ONE (11:22)
--- NOTE | 2021-07-03 11:45 | CT Scan Report ---
CT ANGIOGRAM OF THE CHEST CLINICAL HISTORY: Dyspnea. Sepsis. COMPARISON STUDY: Abdominal CT dated 07/02/2021. Chest x-ray dated 07/02/2021. TECHNIQUE: Following the IV administration of 120 cc of Optiray 320, CT angiogram of the chest was pe rformed from the upper abdomen to the thoracic inlet utilizing the pulmonary embolus protocol. Images are reviewed in the axial, sagittal, and coronal planes. 3-D MIPS images are created and assessed. I V contrast was administered without complication. A dose lowering technique was utilized adhering to the principles of ALARA. CT DOSE: 489.81 mGy.cm FINDINGS: Thyroid: Imaged portions of the thyroid gland are normal in size and attenuation. Thoracic aorta: The thoracic aorta is normal in caliber and demonstrates standard 3-vessel arch anato my. No dissection is seen. Pulmonary vasculature: The pulmonary trunk is normal in caliber. There are no filling defects identif ied in main, lobar, or segmental pulmonary branches to suggest pulmonary embolus. Heart: The heart is normal in size and without pericardial effusion. Lungs and pleural spaces: Dependent atelectasis is noted at both lung bases. There is no lobar consol idation or pleural effusion. Diffuse centrilobular nodules are seen throughout both lungs with mild g roundglass change. There is mild diffuse peribronchial thickening. The trachea and central airways ar e clear. Mediastinum: There is no mediastinal lymphadenopathy. Rosangela: Clear. Axillae: There is no axillary lymphadenopathy. Upper abdomen: Partially visualized upper abdominal viscera is within normal limits. Skeletal structures: No lytic or blastic bony lesions are seen. There is chronic posttraumatic deform ity of the right clavicle. Soft tissues: Mild gynecomastia is noted. IMPRESSION: 1. There is no evidence of pulmonary embolus in the main, lobar, or segmental pulmonary arteries. 2. There is extensive/diffuse centrilobular nodularity with mild groundglass change. The appearance i s nonspecific and favors a hypersensitivity pneumonitis. A diffuse bronchiolitis could also have this appearance. Less likely, this could represent atypical infectious process or could be seen with a va sculitis. Clinical correlation will be essential. 3. There is no lobar consolidation or pleural effusion. 4. No mediastinal or hilar adenopathy is identified. ACT 112: Negative or not required by law. Electronically signed by: Ricky Archer M.D. 07/03/2021 11:44 AM
[2021-07-03] MEDS: cefTRIAXone SODIUM 2,000 MG in DEXTROSE 5% 50 ML IV SCH (13:28)
--- NOTE | 2021-07-03 13:55 | Pulmonary Consultation ---
Date of Consultation July 03, 2021 Assessment & Plan (1) Abnormal chest xray: (2) Abnormal CT scan, chest: (3) Industrial fumes exposure: Attending: Dr. Evans Impression: 35-year-old male that presented with sepsis secondary to orchitis. Chest x-ray showed abnormal findings including atelectasis and diffuse reticular nodular intact interstitial thickening. CT chest with contrast was also performed and showed no evidence of pulmonary emboli. Extensive/diffuse centrilobular nodularity with groundglass opacity changes were also demonstrated. Patient has no further fever. He is currently being treated with levofloxacin and ceftriaxone. Patient has no hypoxia. No elevation of procalcitonin. No elevation of ESR. No eosinophilia. Patient is a lifelong non-smoker with no exposure to secondhand smoke. 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 Recommendations: 1. Abnormal radiographic findings of the chest: * Chest x-ray as well as CT scan show mild groundglass change as well as diffuse centrilobular nodularity. This appears bilaterally. * Differential diagnosis includes bronchiolitis although this is low on the differential as patient was never a tobacco user * This could be a transitory hypersensitivity pneumonitis. Patient does not have any eosinophilia. No previous here history of seasonal allergies or allergic reaction * Atelectasis in the bilateral lower lobes is dependent and could represent an activity due to him not feeling well for the last several weeks. Incentive spirometry will be ordered * There is no mediastinal or hilar adenopathy noted * No evidence of emphysema on imaging. Will preemptively check for alpha-1 antitrypsin deficiency and check an ALEJANDRO to rule out basic autoimmune findings. We will also check an IgE. * Patient has no exposure to agriculture. He has no birds or other exotic animals. ROSY or MAC could be in the differential. No standing water so doubtful that this is Legionella. * Empirically treat with antibiotics for 7 days. Incentive spirometry every hour while awake. Patient also instructed to do this on discharge until his follow-up CT scan. * Would recommend repeat CT scan in 4 to 6 weeks and follow-up in the outpatient pulmonary office 2. 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 He does not wear a respirator or any kind of mask. * Advised patient that he should be wearing a mask and should discuss this with his employer In the absence of hypoxia or other pulmonary symptoms, patient could be worked up as an outpatient. I will schedule an outpatient CT of the chest without contrast and follow-up with the pulmonary clinic in 4 to 6 weeks. Thank you for including us in the care of this patient. Please refer to Dr. Evans's addendum for further recommendations. Pulmonary service will sign off at this time. Supervising Physician Co-Signing Physician Notes Patient seen and examined. Images independently reviewed. Discussed with BAYRON and agree with assessment plan as noted. Differential diagnosis would include inflammatory lung disease such as sarcoid as well as occupational lung disease given his welding exposure. Agree with plans to repeat imaging and PFTs in about 6 to 8 weeks. Await lab evaluation. If the abnormalities persist, could consider additional serological evaluation as well as bronchoscopy with transbronchial biopsy or potential surgical lung biopsy. If related to occupational lung disease, treatment is primarily avoidance and may necessitate the patient finding alternative employment or using respiratory protection if he continues to well. The above recommendations and plan were discussed with the patient. He may want to follow-up at the [place] office with his PFTs and follow-up CT scan. If so I would be happy to see him back in 6 to 8 weeks to review his imaging. No indication for keeping the patient in the hospital at this point time. He can be dismissed with outpatient pulmonary follow-up either in [place] with ALEXANDRO martinez or in [place] with myself. History of Present Illness Reason for Consultation: Abnormal CT scan of the chest Requesting Physician: Dr. Nicholson Attending Physician: Lana Nicholson MD History of Present Illness Attending: Dr. 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 He has no history of tobacco abuse. He has no prior history of vaping or other inhalation. He has no history of heart disease, asthma, childhood asthma, hypoxia, or other systemic disease. Patient reports that he had a vasectomy 05/20/2021 and had unilateral edema of his scrotum. He received antibiotics from his urologist and is seem to improve. Patient then reports that he had contralateral swelling. He presented to the emergency department and was started on doxycycline. He returned home when he developed fever and intense pain. He returned back to the emergency department where he was found to be febrile with a T-max of 38.1 C and tachycardia with a rate in the 130s. Patient was hypertensive with a systolic pressure of 161. Patient was given ceftriaxone and levofloxacin as well as intravenous IV fluid and admitted to the telemetry unit. Chest x-ray was performed and demonstrated diffuse reticulonodular interstitial thickening within the lungs. High resolution CT was then performed with PE protocol. This demonstrated no pulmonary embolus. It was however noted that the patient had dependent atelectasis bilaterally in the bases. He also had diffuse centrilobular nodules seen throughout both lungs with mild groundglass change. There appeared to be mild diffuse peribronchial thickening. There is no evidence of mucous plugging. The trachea and central airways appeared clear. There is also no evidence of mediastinal lymphadenopathy. There also was no evidence of pleural effusions. Patient was never hypoxic. He had no chest pain or tightness. He had no sputum production. He had no hemoptysis. Patient has never been a smoker. His parents are non-smokers. There is no history of lung cancer within the patient's family. No other evidence of pulmonary disease. Patient denies any previous pulmonary issues. Patient does have an elevated white blood cell count of 24.61. He remains afebrile. He has no elevation of his procalcitonin. There is no evidence of his eosinophilia on the patient's differential. ESR is high normal at 15. Patient denies any previous work-up for allergies. He has never had any complaints in the past. Patient has no history of cystic fibrosis in the family . No other significant risk. The patient has no autoimmune disorders that he is aware of. Allergies Allergy/AdvReac Type Severity Reaction Status Date / Time No Known Allergies Allergy Mild Unverified 07/02/21 16:10 Home Medications Medication Instructions Recorded Confirmed Type elderberry fruit 460 mg-elderberry 1 cap PO DAILY #30 cap 05/15/19 07/02/21 Rx flower 115 mg capsule gpodtdwg-pxwdvmcw-lgcxm acid 400 1 tab PO DAILY #30 tab 05/15/19 07/02/21 Rx mcg-vit K 20 mcg-lycop 300 mcg tablet (One-A-Day Men's Multivitamin) doxycycline hyclate 100 mg tablet 100 mg PO BID 10 Days #20 tab 07/02/21 07/02/21 Rx ketorolac 10 mg tablet 10 mg PO BID PRN 5 Days #10 tab 07/02/21 07/02/21 Rx tamsulosin 0.4 mg capsule 0.4 mg PO DAILY #14 cap 07/02/21 07/02/21 Rx Patient History Medical History (Updated 07/03/21 @ 14:04 by Ricky Martinez PA-C) Abnormal CT scan, chest Industrial fumes exposure Migraine Surgical History H/O vasectomy 05/09/21 History of ankle surgery reconstruction of right ankle 2017 Lower extremity injury titanium clayton placed on left femur Family History Sister FH: kidney cancer as a child Grandmother (Paternal) Diabetes Grandfather (Paternal) Heart disease Social History Smoking Status: Never smoker Hx Alcohol Use: No Hx Substance Use: No Preferred Language: Bhutanese Communication Ability: Effective Visual Impairment: No Limitations Hearing Ability: Hard of Hearing Beliefs That Will Affect Care: None marital status: Current Living Situation: Spouse current occupational status: employed current occupation: welder fitter gas Feels Safe at Home: Yes Childhood Exposure to Second-Hand Smoke: No Dental Care, Regularly: No Physical Activity Frequency: Does not Exercise Seatbelt Use: always Assistive Devices: None Review of Systems Review of Systems: A total of 10 systems was reviewed and is negative other than as listed above in the HPI Physical Exam Physical Exam: GENERAL : No acute distress. EYES: No icterus, gaze conjugate NOSE: No evidence of epistaxis MOUTH: No lesions or candidiasis NECK: Supple LUNGS: CTA B/L, no wheezes, rales or rhonchi. Good inspirational effort. No induced cough. No adventitious breath sounds. Breath sounds equal bilaterally. HEART: Regular, rate controlled ABDOMEN: Soft, NT, ND, BS Present EXTREMITIES: No LE edema, pedal pulses intact and equal bilaterally NEURO: A&OX3 Results & Data Results & Data ([facility]) Vital Signs (Past 12 Hours) Vital Signs Temp Pulse Pulse Resp BP Pulse Ox 07/03/21 11:05 36.7 C 89 16 114/63 95 07/03/21 08:00 121 H 07/03/21 07:52 37.1 C 119 H 19 114/61 92 04/07/22 04:13 36.9 C 125 H 18 119/59 L 91 Critical Care Results & Data Vital Signs (Past 12 Hours) Vital Signs Temp Pulse Pulse Resp BP Pulse Ox 07/03/21 11:05 36.7 C 89 16 114/63 95 07/03/21 08:00 121 H 07/03/21 07:52 37.1 C 119 H 19 114/61 92 07/03/21 04:13 36.9 C 125 H 18 119/59 L 91 Lab & Micro Results (Past 24 Hours) RBC 3.99 M/uL (4.7-6.1) L 07/03/21 WBC 24.61 K/uL (4.8-10.8) H 07/03/21 Hgb 12.6 g/dL (14.0-18.0) L 07/03/21 Hct 36.4 % (42-52) L 07/03/21 MCV 91.2 fL (80-100) 07/03/21 MCH 31.6 pg (25-34) 07/03/21 MCHC 34.6 g/dL (32-36) 07/03/21 RDW Standard Deviation 44.0 fL (36.4-46.3) 07/03/21 RDW Coefficient of Variation 13.1 % (11.5-14.5) 07/03/21 Plt Count 332 K/uL (130-400) 07/03/21 MPV 9.9 fL (7.4-10.4) 07/03/21 Neutrophils (%) (Auto) 82.7 % 07/03/21 Lymphocytes (%) (Auto) 5.7 % 07/03/21 Monocytes # (Auto) 2.75 K/uL (0.11-0.59) H 07/03/21 Eosinophils # (Auto) 0.01 K/uL (0-0.5) 07/03/21 Immature Granulocyte % (Auto) 0.4 % 07/03/21 Neutrophils # (Auto) 20.34 K/uL (1.4-6.5) H 07/03/21 Lymphocytes # (Auto) 1.41 K/uL (1.2-3.4) 07/03/21 Monocytes # (Auto) 2.75 K/uL (0.11-0.59) H 07/03/21 Eosinophils # (Auto) 0.01 K/uL (0-0.5) 07/03/21 Basophils # (Auto) 0.01 K/uL (0-0.2) 07/03/21 Immature Granulocyte # (Auto) 0.09 K/uL (0.00-0.02) H 07/03/21 Red Blood Cell Morphology Unremarkable 07/03/21 Na 136 mmol/L (136-145) 07/03/21 K 3.7 mmol/L (3.5-5.1) 07/03/21 Cl 105 mmol/L (98-107) 07/03/21 CO2 24 mmol/L (21-32) 07/03/21 Anion Gap 7 (3-11) 07/03/21 BUN 16 mg/dl (6-23) 07/03/21 Creatinine 0.89 mg/dl (0.6-1.4) 07/03/21 Estimated GFR ( Amer) 128.4 ml/min 07/03/21 Estimated GFR (Non-Af Amer) 110.8 ml/min 07/03/21 BUN/Creatinine Ratio 18.0 (10-20) 07/03/21 Glu 113 mg/dl (70-99(Fasting)) H 07/03/21 Ca 8.1 mg/dl (8.5-10.1) L 07/03/21 Total Bilirubin 0.6 mg/dl (0.2-1.0) 07/03/21 AST 14 U/L (13-39) 07/03/21 ALT 14 U/L (7-52) 07/03/21 Alkaline Phosphatase 55 U/L (34-104) 07/03/21 TP 6.0 gm/dl (6.0-8.3) 07/03/21 Albumin 3.4 gm/dl (3.4-5.0) 07/03/21 Globulin 2.6 gm/dl (2.5-4.0) 07/03/21 Albumin/Globulin Ratio 1.3 (0.9-2) 07/03/21 Mg 1.6 mg/dl (1.7-2.4) L 07/03/21 09:08 07/03/21 Calcium Level 8.1 mg/dl (8.5-10.1) L 07/03/21 09:08 07/03/21 Diagnostic Findings (Past 24 Hours) Abdomen/Pelvis CT 07/02/21 15:57 CT OF THE ABDOMEN AND PELVIS WITH CONTRAST CLINICAL HISTORY: R flank pain and RLQ pain and dysuria COMPARISON STUDY: None. TECHNIQUE: Following IV administration of 93 mL of Optiray, axial images of the abdomen and pelvis were obtained from the lung bases to the proximal femurs. Im ages were reviewed in the axial, sagittal, and coronal planes. IV contrast was administered without complication. Automated exposure control was utilized for the study. A dose lowering technique was utilized adhering to the principles of ALARA. CT DOSE: 500.36 mGy.cm FINDINGS: Visualized portions of the lower lungs are suboptimally assessed due to respiratory motion artifact. There is suggestion of tiny nodules throughout the lower lungs, likely centrilobular in location. Linear opacities reflect atelectasis. No pneumatosis, free air or portal venous gas is present. Liver, spleen, adrenal glands, kidneys and pancreas are normal. There is no hydronephrosis. No biliary or pancreatic ductal dilatation is present. There is no evidence for acute appendicitis. No evidence for a bowel obstruction. Caliber and wall thickness of small and large bowel are normal. There is no lymphadenopathy. Major vasculature is patent. No acute fracture or suspicious lesion within the visualized skeletal structures. Surgical clips within the scrotum are noted. Left femoral internal fixation is partially imaged. IMPRESSION: 1. No acute process within the abdomen or pelvis. 2. Tiny nodules throughout the lower lungs, suboptimally assessed on this exam. These may be centrilobular location and raise the possibility of bronchiolitis or less likely hypersensitivity pneumonitis. ACT 112: Negative or not required by law. Electronically signed by: Hema Reyes M.D. 07/02/2021 5:03 PM Chest X-Ray 07/02/21 18:55 XR chest 1V portable CLINICAL HISTORY: evaluate for infiltrates/effusions COMPARISON STUDY: No previous studies for comparison. FINDINGS: Lung volumes are normal. No pneumothorax or pleural effusion is present. Old right clavicular fracture is present. Cardiac size is normal. Mediastinal contours are normal. There is diffuse reticulonodular interstitial thickening within the lungs. IMPRESSION: Diffuse reticulonodular interstitial thickening within the lungs. This is nonspecific although favors an infectious process. Radiographic follow- up is recommended. ACT 112: Negative or not required by law. Electronically signed by: Hema Reyes M.D. 07/02/2021 8:10 PM Chest CTA 07/03/21 10:22 CT ANGIOGRAM OF THE CHEST CLINICAL HISTORY: Dyspnea. Sepsis. COMPARISON STUDY: Abdominal CT dated 07/02/2021. Chest x-ray dated 07/02/2021. TECHNIQUE: Following the IV administration of 120 cc of Optiray 320, CT angiogram of the chest was performed from the upper abdomen to the thoracic inlet utilizing the pulmonary embolus protocol. Images are reviewed in the axial, sagittal, and coronal planes. 3-D MIPS images are created and assessed. IV contrast was administered without complication. A dose lowering technique was utilized adhering to the principles of ALARA. CT DOSE: 489.81 mGy.cm FINDINGS: Thyroid: Imaged portions of the thyroid gland are normal in size and attenuation. Thoracic aorta: The thoracic aorta is normal in caliber and demonstrates standard 3-vessel arch anatomy. No dissection is seen. Pulmonary vasculature: The pulmonary trunk is normal in caliber. There are no filling defects identified in main, lobar, or segmental pulmonary branches to suggest pulmonary embolus. Heart: The heart is normal in size and without pericardial effusion. Lungs and pleural spaces: Dependent atelectasis is noted at both lung bases. There is no lobar consolidation or pleural effusion. Diffuse centrilobular nodules are seen throughout both lungs with mild groundglass change. There is mild diffuse peribronchial thickening. The trachea and central airways are clear. Mediastinum: There is no mediastinal lymphadenopathy. Rosangela: Clear. Axillae: There is no axillary lymphadenopathy. Upper abdomen: Partially visualized upper abdominal viscera is within normal limits. Skeletal structures: No lytic or blastic bony lesions are seen. There is chronic posttraumatic deformity of the right clavicle. Soft tissues: Mild gynecomastia is noted. IMPRESSION: 1. There is no evidence of pulmonary embolus in the main, lobar, or segmental pulmonary arteries. 2. There is extensive/diffuse centrilobular nodularity with mild groundglass change. The appearance is nonspecific and favors a hypersensitivity pneumonitis. A diffuse bronchiolitis could also have this appearance. Less likely, this could represent atypical infectious process or could be seen with a vasculitis. Clinical correlation will be essential. 3. There is no lobar consolidation or pleural effusion. 4. No mediastinal or hilar adenopathy is identified. ACT 112: Negative or not required by law. Electronically signed by: Ricky Archer M.D. 07/03/2021 11:44 AM I & O Totals 24 Hours 07/02/21 07/03/21 07/04/21 06:59 06:59 06:59 Intake Total 3700.417 / 3700.417 979.167 / 979.167 Output Total 600 / 600 Balance 3100.417 / 3100.417 979.167 / 979.167 Cumulative 07/02/21 15:31 thru 07/03/21 13:32 Intake Total 4679.584 Output Total 600 Balance 4079.584 RT Ventilator Mngmt (Last Documented) Ventilator Ordered Settings Respiratory Rate 16 07/03/21 11:05 Ventilator - PT Measurements Respiratory Rate 16 PG Care Time/CCT Total # of Minutes Spent Total Time Spent with Patient: Total time spent is greater than 50% in coordination of care (as documented) at patient's floor/unit and/or counseling patient: 60 minutes Coding Level of Care Code 53102 Inpt Consult Level 4 Diagnoses Abnormal chest xray R93.[address] scan, chest R93.89 Industrial fumes exposure Z77.098 Time Spent (min) 60
[2021-07-03] MEDS: levoFLOXacin/D5W 500 MG/100 ML BAG IV SCH (20:20)
[2021-07-03] MEDS ORDERED: ENOXAPARIN INJ 40 MG/0.4 ML SYR SQ SCH (21:00)
[2021-07-04] MEDS: IBUPROFEN 600 MG TAB PO PRN (02:56)
[2021-07-04] MEDS: LACTATED RINGER'S 1,000 ML IV SCH (03:53)
[2021-07-04 06:48] LABS: Basophils # (auto) 0.02 K/uL (0-0.2); Basophils % (auto) 0.1 %; Eosinophils # (auto) 0.15 K/uL (0-0.5); Eosinophils % (auto) 0.9 %; Hematocrit (blood only) 41.9 % (42-52); Hemoglobin 14.2 g/dL (14.0-18.0); Immature Granulocytes # (auto) 0.05 K/uL (0.00-0.02); Immature Granulocytes % (auto) 0.3 %; Lymphocytes # (auto) 1.43 K/uL (1.2-3.4); Lymphocytes % (auto) 8.6 %; Mean Corpuscular Hemoglobin 31.4 pg (25-34); Mean Corpuscular Hgb Conc 33.9 g/dL (32-36); Mean Corpuscular Volume 92.7 fL (80-100); Mean Platelet Volume 10.4 fL (7.4-10.4); Monocytes # (auto) 1.67 K/uL (0.11-0.59); Neutrophils # (auto) 13.35 K/uL (1.4-6.5); Neutrophils % (auto) 80.1 %; Platelet Count 337 K/uL (130-400); RDW Coefficient of Variation 13.4 % (11.5-14.5); RDW Standard Deviation 45.8 fL (36.4-46.3); Red Blood Count 4.52 M/uL (4.7-6.1); White Blood Count 16.67 K/uL (4.8-10.8)
[2021-07-04 07:09] LABS: Albumin Globulin Ratio 1.3 (0.9-2); Albumin Level 3.7 gm/dl (3.4-5.0); BUN Creatinine Ratio 19.7 (10-20); Bilirubin,Total 0.5 mg/dl (0.2-1.0); C Reactive Protein 12.76 mg/dl (0-0.5); Calcium 8.7 mg/dl (8.5-10.1); Creatinine Clr Calc Pharmacy 166.6 ml/min; Est GFR (Non-African American) 118.2 ml/min; Globulin 2.9 gm/dl (2.5-4.0); Magnesium 1.7 mg/dl (1.7-2.4); Potassium 3.8 mmol/L (3.5-5.1); Total Protein 6.6 gm/dl (6.0-8.3)
--- NOTE | 2021-07-04 08:12 | Urology Progress Note ---
Date of Service July 04, 2021 Assessment & Plan (1) Orchitis and epididymitis: (2) Pain in right testicle: Plan: 35 yo M admitted for fever and right epididymoorchitis, possible sepsis secondary to pulmonary vs source. - Follow-up of right epididymoorchitis. - Pt subjectively improving. - Pt afebrile overnight, no longer tachycardic. - Labs reviewed - WBC downtrending to 16.67, creatinine 0.76, GC/CT pending. - UA on admission was not suspicious for infection. - Blood cultures no growth x 24 hours - on IV Ceftriaxone and Levaquin per primary team, follow cultures. - Pulmonary consult reviewed - pt will have further work-up outpatient. - Continue antibiotics, supportive care, and management per primary service. - Recommend scrotal support and elevation, applying ice or heat to area for 20 min on/off, and NSAIDs. - Recommend d/c to home with PO antibiotics, Tamsulosin, and NSAIDs when medically stable. - Discussed with patient that scrotal swelling can persist for a few weeks. - Will arrange outpatient follow-up with our service. - will sign off, please contact our service with any additional questions or concerns. Admission and Anticipated Discharge Date Admission Date: July 02, 2021 Subjective Pt seen and examined at bedside this AM. He is awake, alert and sitting up in bedside chair. No acute issues overnight. Reports right scrotal discomfort improved, notes mild swelling persists. Voiding without difficulty, no dysuria or hematuria. No nausea or vomiting. No fever or chills. Offers no additional complaints at present. Review of Systems Constitutional: as per Subjective / HPI Gastrointestinal: as per Subjective / HPI Genitourinary: + as per Subjective / HPI Physical Exam Constitutional: well developed and well nourished; no acute distress and not ill appearing Respiratory: normal respiratory effort; no respiratory distress, no labored breathing and no audible wheezes Cardiovascular: Extremities: no pedal edema Gastrointestinal (Abdomen): Inspection/Auscultation: abdomen normal to inspection; abdomen not distended Musculoskeletal: Head/Neck/Chest: normocephalic and head atraumatic Skin: no visible rashes Neurologic: moves all extremities and awake Psychiatric: Orientation: alert and oriented x 3 Results & Data ([facility]) Vital Signs (Past 12 Hours) Vital Signs Temp Pulse Pulse Resp BP Pulse Ox 07/04/21 07:00 76 07/04/21 06:55 36.7 C 76 19 133/79 97 07/04/21 03:21 36.9 C 76 16 146/78 H 98 07/04/21 00:51 86 07/03/21 23:28 36.5 C 76 18 128/72 95 PG Care Time/CCT Total # of Minutes Spent Total Time Spent with Patient: Total time spent is greater than 50% in coordination of care (as documented) at patient's floor/unit and/or counseling patient: Coding Level of Care Code 53837 Subseq Hosp Care Lvl 2 Diagnoses Orchitis and epididymitis N45.3 Pain in right testicle N50.811
[2021-07-04 12:11] LABS: Chlamydia Trach RNA NOT DETECTED (NOT DETECTED); GC (Neis gonorrhoeae) RNA NOT DETECTED (NOT DETECTED)
--- NOTE | 2021-07-04 12:44 | Discharge Summary ---
Date of Service July 04, 2021 Admission HPI Per Admitting Provider 35 YOM with past medical history of: Migraine, s/p vasectomy in May 20. Comes to the [facility] today for complaints of right testicular pain that started at 0400 this morning with radiation to his lower abdomen. 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 As the day went on the pain got worse, he called urology office and was instructed to come to the [facility]. He had a urine sample that was negative alta 06/27/21. He was evaluated in the [facility] this morning with testicular ultrasound and following discussion with urology- he was discharged with oral Doxycycline. The patient states he went home took Doxy and then woke up with increased pain, fever with rigors, checked his temperature and was noted to be 103. He returned back to the [facility] and was noted to have HR 130s- he was given a dose of Rocephin and had a CT scan of his abdomen and pelvis done. WBC are 23 with neutrophil predominance, lactate 0.8. Last void was at 1300 today. He has no other complaints other than testicular pain, no other feelings of being ill, denies dyspnea, cough, sinus congestion, or pain with defecation. Will admit to PCU for sepsis, continue to search for other causes, CXR and blood cultures. Ultrasound of testicle was negative for abscess- awaiting urine culture, will send G&C urine. Cover patient with antibiotics to include Rocephin and Leva louisa. Bolus with 1 liter of crystalloid and continue with LR, he is not hypotensive or other evidence of organ dysfunction. Will consult urology. COVID: NEGATIVE Principal Diagnosis Sepsis secondary to epididymitis, pulmonary nodules Discharge Exam Constitutional WD/WN, vitals as above Eyes + anicteric sclerae ENMT external ear and nose normal, oropharynx normal Neck trachea midline, no thyromegaly Respiratory normal respiratory effort, lungs clear to auscultation Cardiovascular RRR, no murmur, no edema Chest (Breasts) Chest: normal inspection of chest Gastrointestinal (Abdomen) normal bowel sounds, soft, nontender, no hepatosplenomegaly Musculoskeletal Extremities: extremities normal to inspection; no cyanosis and no clubbing Skin no rashes, warm and dry Neurologic moves all extremities and awake; no focal motor deficits Psychiatric A+Ox3, euthymic affect Lymphatic no lymphedema Discharge Data Allergies Allergy/AdvReac Type Severity Reaction Status Date / Time No Known Allergies Allergy Mild Unverified 07/02/21 16:10 Consultations 07/02/21 17:42 ED Decision to Admit Stat 07/02/21 20:25 Consult Urology Routine 07/03/21 11:47 Consult Pulmonology Routine Ordered Studies 07/02/21 15:57 CT abd pelvis IV con only Stat 07/03/21 10:22 CT angio chest PE protocol Urgent Hospital Course (1) Sepsis: Sepsis without shock-secondary to epididymitis and orchitis With significant leukocytosis, elevation CRP, tachycardia, and fevers. Procalcitonin negative. Lactate negative. He is a history of vasectomy 2 months ago with no complications afterwards. Scrotal ultrasound reveals increased vascularity in the right epididymis and testis. CT abdomen/pelvis here shows no acute process in the abdomen or pelvis but with nodules in the lower lungs Overall feeling significantly improved since admission, fevers have resolved, pain in scrotum is greatly improved, leukocytosis is improving and CRP is downtrending Sinus tachycardia is resolved after IV fluids and resolution of fever, antibiotic treatment Blood cultures-remain no growth to date-of note last 48 hours at the time of discharge-of note they were drawn after administration of p.o. doxycycline prior to admission and 1 dose of IV Rocephin in the ER UA negative for infection from 07/02; urine culture negative from 06/27 GC/chlamydia negative Chest x-ray with reticulonodular interstitial thickening but do not believe this is related to the current sepsis CT angiogram chest negative for PE, but with multiple nodules as below -Treated for epididymitis/orchitis with Rocephin and Levaquin x3 days, and will finish out a 10-day course of levofloxacin orally upon discharge -Follow blood cultures with no growth to date -Received IV fluids -Continue Tylenol and ibuprofen as needed for pain and fever after discharge -Unsure why he is on tamsulosin-discontinued (2) Orchitis and epididymitis: As above- Urology consulted - Updated Dr. 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 No mediastinal or hilar adenopathy. Consult pulmonology appreciated-reports differential would include inflammatory lung disease such as sarcoid as well as occupational lung diseases given welding exposure. Recommends repeat chest CT and PFTs in 6 to 8 weeks. Check alpha-1 antitrypsin, ALEJANDRO, IgE. -I will also add on angiotensin converting enzyme level and vitamin D1, 25 for the morning to assess for sarcoidosis Follow-up with pulmonology as an outpatient Labs will need to be followed after discharge (4) Sinus tachycardia: Secondary to sepsis, now resolved after IV fluid administration and resolution of sepsis ECG with right axis deviation CT angiogram chest-negative for PE (5) Pulmonary nodules: As above DVT prophylaxis-SCDs, Lovenox Disposition-stable for discharged home, doing very well Total Time Total Time Spent Total Time Spent (In Minutes): 40 minutes Discharge Plan Discharge Items Patient Disposition: Home - Self-Care Reason For Visit: EPIDIDYMITIS, SEPSIS Discharge Diagnosis: Epididymitis, Sepsis Pulmonary nodules Condition on Discharge: Good Activity: As commented below Lifting: No more than 10 pounds Bathing: No limitations Exercise/Sports: Gradually increase as tolerated Exercise Comment: Keep scrotum elevated in support briefs Driving/Machine Use: No limitations Non-emergency contact: Primary Care Provider and [facility] Call non-emergency contact if: you have any medication questions, your symptoms worsen, your pain is not controlled, your pain is worsening, you have a fever and your temperature is above 101 Follow-up/Referrals: Adrian Hopkins III, CRNP [Primary Care Provider] - 07/10/21 12:20 pm (Hospital follow up with primary care, and to become established as a new patient. Please note the address listed above; your appointment is at the [facility] office on [address] [facility] in [place].) Roberto Carlos French DO [Physician] - 08/05/21 9:15 am Andrea Evans MD [Physician] - 08/26/21 11:00 am (Please follow up with Dr. Evans on Wednesday08/26/21 at 11:00 am. Please arrive to the office at 10:45 am for your appointment. If you are unable to keep this appointment, please call the office to reschedule at [phone].) Diet: Regular Addtl Attending Provider Instructions: Please finish out the antibiotics (Levofloxacin) for 8 more days for your testicular infection. Continue to ice the scrotum for 20 min at a time, three times a day and provide scrotal support. For the nodules found in your lungs, there are some blood tests pending and your primary care doctor can follow up on these results for you in about 1-2 weeks at your follow up appointment. You will need to follow up with the [facility] in 6 weeks with a repeat chest CT prior to that appointment. Pending Studies at Discharge: Yes (Final blood cultures-no growth to date) Studies:: Also pending: ALEJANDRO,IgE,CORRINE,Vit D 1,25, Alpha-1 antitrypsin Stand-Alone Forms: [facility] Donate Your Desktop, Work/School Release, Smoking Cessation Medications and DC Order Prescriptions: New acetaminophen 325 mg Tablet 650 mg PO Q6H PRN (Reason: pain) Qty: 30 RF: 0 ibuprofen 200 mg tablet 600 mg PO Q6H PRN (Reason: pain) Qty: 60 RF: 0 levofloxacin 500 mg tablet 500 mg PO DAILY Qty: 8 RF: 0 Continued One-A-Day Men's Multivitamin 400-20-300 mcg tablet 1 tab PO DAILY Qty: 30 RF: 0 elderberry fruit and flower 460-115 mg capsule 1 cap PO DAILY Qty: 30 RF: 1 Discontinued doxycycline hyclate 100 mg tablet 100 mg PO BID 10 Days Qty: 20 RF: 0 ketorolac 10 mg tablet 10 mg PO BID PRN (Reason: pain) 5 Days Qty: 10 RF: 0 tamsulosin 0.4 mg capsule 0.4 mg PO DAILY Qty: 14 RF: 0 Discharge Orders: Discharge Order (Routine); Ordered 07/04/21 Ordered By: Lana Nicholson Admission Data Admit Date/Time: 07/02/21 18:43 Attending Provider: Lana Nicholson Admit Provider: Milad Morse Primary Care Provider: Adrian Hopkins III Other Providers: Milad Morse ; Roberto Carlos French ; Andrea Evans Other Interventions: Discharge Summary Assessment (RN) Last Done: 07/04/21 13:32 Coding Level of Care Code D/C DAY MANAGEMENT >30 MINS Diagnoses Sepsis A41.9 Orchitis and epididymitis N45.3 Abnormal chest xray R93.89 Sinus tachycardia R00.0 Pulmonary nodules R91.8
[2021-07-04] MEDS: cefTRIAXone SODIUM 2,000 MG in DEXTROSE 5% 50 ML IV SCH (13:03)
[2021-07-08 14:52] LABS: Angiotensin Converting Enzyme 30 U/L (9-67); Vitamin D 1,25 75 pg/mL (18-72); Vitamin D3,1,25 75 pg/mL
[2021-07-14 13:41] LABS: Anti Nuclear Antibody Screen POSITIVE (NEGATIVE); Immunoglobulin IgE 20 kU/L (<OR=114)
== END 2021-07-04 14:25 | disposition home or self-care (01) | DRG 872 ==
LOC: ED 15:31 → 2S 18:43 → SUATTDRO 18:43 → 2S 19:53
DX: A41.9 Sepsis, unspecified organism; Z20.822 Contact with and (suspected) exposure to COVID-19; D72.829 Elevated white blood cell count, unspecified; R91.8 Other nonspecific abnormal finding of lung field; Z98.52 Vasectomy status; Z57.8 Occupational exposure to other risk factors; N45.3 Epididymo-orchitis; Z86.69 Personal history of other diseases of the nervous system and sense organs; Z79.899 Other long term (current) drug therapy